=== PATIENT | male | born 1965 | race Hispanic/Latino ===

== ENCOUNTER 2018-11-20 11:45 | Inpatient (IN) | payer BC ==
[2018-11-20] MEDS ORDERED: PROPOFOL 20 ML ONE (12:01)
[2018-11-20 12:02] LABS: Actual Bicarbonate (HCO3a) 25.1 mEq/L (22-28); Analyzer IN Cardio ER; Base Excess (BEa) 0.8 mEq/L (-2.0 to +3.0); CO2 Tension 39.3 mmHg (35.0-45.0); Calcium, Ionized 1.12 mmol/L (1.12-1.30); Carboxyhemoglobin (COHb) 0.7 gm% (0.0-3.0); Hemoglobin (Hb) 18.2 g/dL (14.0-18.0); Potassium - ABG Lab 3.07 mmol/L (3.70-5.30); pH, Arterial 7.42 (7.35-7.45)
[2018-11-20 12:03] LABS: ALV-art Gradient 99.875 (0-20); Puncture Site RR
--- NOTE | 2018-11-20 12:07 | RAD ---
EXAM: CHEST ONE VIEW HISTORY: Trauma. COMPARISON: None FINDINGS: Endotracheal tube is noted in place with tip overlying the T3 vertebral body and above the level of t he pasquale. Radiopaque tubing overlies the right hemithorax. Cardiac silhouette and bronchovascular markings are accentuated by the shallow depth inspiration and portable technique of the exam. There i s mild elevation of the right hemidiaphragm. No pneumothorax or pleural effusion is identified on this exam. No obvious fracture is seen. Vascular calcifications are seen in the aortic arch. IMPRESSION: 1. Endotracheal tube is noted in place above the level of the pasquale. 2. No pneumothorax or pleural effusion is identified.
[2018-11-20 12:11] LABS: #Basophils 0.1 thou/uL (0.0-0.2); #Eosinphils 0.3 thou/uL (0.0-0.7); #Lymphocytes 2.7 thou/uL (1.20-3.40); #Neutrophils 4.6 thou/uL (1.40-6.50); %Basophils 1.1 % (0.0-1.0); %Lymphocytes 31.3 % (21.0-51.0); %Monocytes 11.4 % (0.0-10.0); %Neutrophils 53.2 % (42.0-75.0); Hemoglobin 18.5 g/dL (14.0-18.0); Mean Corpuscular HGB CONC 35.2 g/dL (32.0-36.0); Mean Corpuscular Hemoglobin 34.7 pg (27.0-31.0); Mean Corpuscular Volume 98.5 fL (78.0-98.0); Mean Platelet Volume 8.6 fL (7.4-10.4); Platelet Count 97 thou/uL (130-400); RBC Distribution Width 11.9 % (11.5-14.5); Red Blood Cell (RBC) Count 5.33 mill/uL (4.70-6.10); White Blood Cell (WBC) Count 8.6 thou/uL (4.8-10.8)
[2018-11-20 12:12] LABS: INR-International Normal Ratio 1.3; PTT 28.5 SEC (22.9-36.1); Prothrombin Time 16.1 SEC (12.0-14.7)
[2018-11-20] MEDS ORDERED: niCARdipine 20MG In NaCl 20 MG/200 ML BAG ONE (12:21)
[2018-11-20 12:23] LABS: Platelet Morphology Comment Appears Decreased; RBC Morphology Normal
[2018-11-20] MEDS ORDERED: Propofol 1,000 MG/100 ML VIAL IV ONE (12:23)
[2018-11-20 12:24] LABS: Acetaminophen Less than 6.0 mcg/mL (10.0-30.0); Alcohol Less than 10 mg/dL (Less than 10); Salicylate Less than 8.0 mg/dL (15.0-30.0)
[2018-11-20 12:25] LABS: ALT (SGPT) 40 U/L (8-55); AST (SGOT) 41 U/L (5-34); Albumin 3.6 g/dL (3.5-5.0); Alkaline Phosphatase 151 U/L (40-110); Anion Gap 10 mmol/L (10-20); BUN (Urea Nitrogen) 10 mg/dL (8.4-25.7); Bilirubin, Total 1.5 mg/dL (0.2-1.2); Calc. Creatinine Clearance 0 mL/min (70-130); Calcium 8.6 mg/dL (7.8-10.44); Carbon Dioxide 25 mmol/L (22-29); Chloride 105 mmol/L (98-107); Estimated GFR-MDRD Greater than 90; Globulin 4.4 g/dL (2.4-3.5); Glucose 244 mg/dL (70-105); Lipase 51 U/L (8-78); Sodium 137 mmol/L (136-145)
--- NOTE | 2018-11-20 12:29 | CT ---
CT BRAIN WITHOUT CONTRAST: DATE: . TIME: 11:56 AM. CLINICAL HISTORY: Altered mental status, tongue numbness. COMPARISON: None. FINDINGS: Hemorrhage: Acute hemorrhage does involve the brainstem, centered at the supriya and extending laterally to the right via the right cerebral peduncle, to the medial aspect of the right basal ganglia, traversing the posterior limb and genu of the right internal capsule. Hemorrhagic involvement of righ t thalamus, as well. Ventricular system: Hemorrhage does dissect into the fourth ventricle as well as within the left fora men of Luschka. No ventriculomegaly. Cerebral parenchyma: Hemorrhagic extension into right cerebral hemisphere, as above Midline shift: None. Mass: Mass effect is localized within the brainstem due to the above-described hemorrhage Calvarium: Normal. Visualized Paranasal sinuses: Scattered opacification and fluid, also involving nasal passageway, ludwig e of which relates to intubated state. IMPRESSION: Acute brainstem hemorrhage, with right lateral extension via the right cerebral peduncle to the right internal capsule and right thalamus. This is most consistent with an acute hypertensive hemorrhage. Telephone call placed to patient's physician Anatoly Reina at 1224 hours. CODE CR Transcribed Date/Time: 11/20/2018 12:56 PM
--- NOTE | 2018-11-20 12:49 | CT ---
CTA of the head with and without IV contrast and 3-D reformatted imaging. CTA of the neck with IV contrast and 3-D reformatted imaging 3 D Volume Rendering: DATE: 11/20/2018 11:56 AM HISTORY: Altered mental status, tongue numbness COMPARISON: None FINDINGS: Reference concurrently dictated head CT for details regarding acute intracranial hemorrhage. Right: CCA:No significant stenosis. Mild vascular calcification. ICA:No significant stenosis. Mild vascular calcification. MCA:No significant stenosis. POP:No significant stenosis. DEHYDROGENATION CONVERTER OPERATOR:No significant stenosis. LEFT: CCA:No significant stenosis. Mild vascular calcification. ICA:No significant stenosis. Mild vascular calcification. MCA:No significant stenosis. POP:No significant stenosis. DEHYDROGENATION CONVERTER OPERATOR:No significant stenosis. Vertebrobasilar System: Left Vertebral:No significant stenosis. Mild vascular calcification. Right Vertebral:No significant stenosis. Basilar:No significant stenosis. IMPRESSION: No hemodynamically significant stenosis, occlusion or aneurysmal dilation. Scattered mild vascular calcification.
[2018-11-20] MEDS ORDERED: Magnesium 2 GM/50 ML BAG (IN WATER) ONE (12:51)
[2018-11-20] MEDS ORDERED: Potassium Chloride 40 MEQ in Sodium Chloride 0.9% 500 ML IVPB SCH (13:00)
[2018-11-20 13:02] LABS: Bacteria/HPF None Seen HPF (None Seen); Bilirubin Negative (Negative); Blood, Urine Trace (Negative); Clarity Clear (Clear); Glucose, Urine (Dipstick) 100 mg/dL (Negative); Leukocyte Negative Leu/uL (Negative); Nitrite Negative (Negative); Protein, Urine (Dipstick) Negative (Neg-Trace); RBC/HPF 0-3 HPF (0-3); Squamous Epithelial 0-3 HPF (0-3); Urobilinogen Normal mg/dL (Less than 2); WBC/HPF None Seen HPF (0-3)
--- NOTE | 2018-11-20 13:02 | CT ---
EXAM: CT cervical spine PROVIDED CLINICAL HISTORY: Trauma. Patient called 911 secondary to tongue numbness. Upon EMS arrival, the patient was found unre sponsive in bathtub. TECHNIQUE: Contiguous axial CT images are obtained through the cervical spine from the skull base to the T2 leve l. Sagittal and coronal reformatted images are provided. COMPARISON: None FINDINGS: No evidence for fracture or traumatic subluxation. There is rotation of C1 on C2 attributable to matthew ent's head rotated to the right and is not thought to be related to rotary subluxation. No prevertebral soft tissue swelling is apparent. Endotracheal tube and nasogastric tubes are noted in place. The abdomen tracheal tube terminates at t he level of the T2 vertebral body. There is fluid seen within the nasopharynx and oropharynx likely attributable to recent placement of endotracheal tube and nasogastric tube. Visualized lung apices appear clear. Visualized thyroid gland demonstrates a grossly normal nonenhanced CT appearance. Tiny amount of fluid is seen in the left maxillary antrum. Visualized lung apices are clear. Gas is seen in an infraclavicular location likely related to gas wi thin venous structures secondary to placement of a peripheral intravenous catheter. IMPRESSION: No evidence for fracture or traumatic subluxation. Fluid in the nasopharynx and oropharynx likely related to intubation and nasogastric tube placement. Above findings were discussed with Dr. Reina on 11/20/2018 at 1258 hours.
[2018-11-20] MEDS ORDERED: ISOVUE-370 76%-LOCM 1 ML ONE (13:08)
[2018-11-20 13:12] LABS: Amphetamine Not Detected (NotDetected); Barbiturates Screen Not Detected (NotDetected); Benzodiazepine Screen Not Detected (NotDetected); Cocaine Metabolite Screen Not Detected (NotDetected); Medtox Control Line Valid? VALID (VALID); Medtox Reader # READER 4; Methadone Not Detected (NotDetected); Methamphetamine Not Detected (NotDetected); Opiate Screen Not Detected (NotDetected); Oxycodone Screen Not Detected (NotDetected); Phencyclidine (PCP) Not Detected (NotDetected); THC/Cannabinoid Screen Not Detected (NotDetected); Tricyclic Screen Not Detected (NotDetected)
[2018-11-20] MEDS ORDERED: Ondansetron PF 4 MG/2 ML Vial IVP PRN (13:27)
[2018-11-20] MEDS ORDERED: Docusate 100 MG CAP PO PRN (13:27)
[2018-11-20] MEDS ORDERED: Acetaminophen 325 MG TAB PO PRN (13:27)
[2018-11-20] MEDS ORDERED: Mag-Al 1200 mg/1200 mg/30 ML UDCUP PO PRN (13:27)
[2018-11-20] MEDS ORDERED: niCARdipine 25 MG in Sodium Chloride 0.9% 250 ML 240 ML IVPB PRN (13:27)
[2018-11-20] MEDS ORDERED: Fentanyl 100 MCG/2 ML VIAL ONE (14:05)
[2018-11-20] MEDS ORDERED: Lorazepam 2 MG/ML VIAL ONE (14:15)
--- NOTE | 2018-11-20 14:24 | HP ---
HISTORY OF PRESENT ILLNESS: Mr. Morin is a 53-year-old male, who was brought to the emergency department this afternoon for altered mental status. He called the EMS from home stating that he had numbness in his tongue. When EMS arrived, he was found unresponsive in his bathtub. There were no medications around. He was brought to the hospital. He was intubated and GCS of 4. Neurosurgery was consulted due to CT imaging of the brain showing brainstem hemorrhage. He is unresponsive. When I see him, he is ventilated and has been sedated. There is no obvious sign of trauma. He had an episode of bleeding from nares. His right pupil is dilated and fixed. His left pupil is constricted and is responsive. He has a very minimal corneal reflex. Positive doll's eye and no gag reflex. I did not get any motor response to painful stimuli. He is currently GCS of 3. There is no family around. There is no evidence of blood thinners. REVIEW OF SYSTEMS: Unable to obtain. MEDICAL HISTORY: Unable to obtain. MEDICATIONS: Unable to obtain. SOCIAL HISTORY: The patient lives alone. EMS found multiple empty beer cans around his living room, but no medication or illicit drugs were found. PHYSICAL EXAMINATION: VITAL SIGNS: Temperature 98.2, blood pressure was 135 systolic, heart rate 80, respirations 20, and O2 stats 100% on vent. CONSTITUTION: He is currently intubated and responsive. He is normocephalic and atraumatic. ENT: Right pupil is dilated and fixed. Left pupil is constricted, but responsive to light. Trachea is midline. He does have some noticeable blood in his nares. RESPIRATIONS: Normal. Chest rise symmetric, but on ventilator. NEURO: GCS 3. Currently, the patient has no response to painful stimuli. He has a very mild corneal reflex. He has positive doll's eyes. No gag reflex and right eye is fixed and dilated. Left eye is constricted, but reactive. IMAGING STUDIES: CT brain, acute brainstem hemorrhage with right lateral extension, right cerebral peduncle to the right internal capsule and right thalamus. ASSESSMENT AND PLAN: Mr. Morin is a 53-year-old male with an acute brainstem hemorrhage occurring earlier this morning. This is all likely hypertensive bleed. There are no evidence of blood thinners on board. However, there is no family to contact either. Our plan is to get him admitted up into the ICU. We will consult hospitalist for medical management to help with blood pressure medications. We will have an EVD kit at bedside. Neuro check regularly. Keep his blood pressure systolic under 140. This type of bleed has a poor prognosis, and there is no surgical intervention that can be done. We will get a repeat CT in 6 hours from the original. If there are any questions, please contact the Neurosurgery team. Job ID: [id number]
[2018-11-20] MEDS: Sodium Chloride 0.9% 1,000 ML IV SCH (14:40)
[2018-11-20] MEDS ORDERED: Propofol BOLUS 1,000 MG/100 ML VIAL IV PRN (15:02)
[2018-11-20] MEDS ORDERED: Lorazepam 2 MG/ML VIAL SLOW IVP PRN (15:02)
[2018-11-20] MEDS ORDERED: fentaNYL Citrate/PF 2,000 MCG in Sodium Chloride 0.9% 60 ML IV SCH (15:02)
[2018-11-20] MEDS ORDERED: Fentanyl BOLUS 250 ML IVPB PRN (15:02)
--- NOTE | 2018-11-20 15:42 | HP ---
HISTORY OF PRESENT ILLNESS: Mr. Morin is a 53-year-old man, who apparently called 911 complaining of numbness to his tongue. The patient was able to open his door while waiting for emergency room medical personnel. Upon arrival of the EMS, the patient was found in the bathtub now with initial [place] Coma Scale of E4, V2, M6. Within 2 to 3 minutes of arrival of the EMS, the patient became unresponsive and was literally lifted off the bathtub and transported via ground EMS to [facility] in [place], [place]. The patient arrived within 20 minutes of this presentation. GCS upon arrival was noted at E1, V1, M2. He was electively intubated to protect his airway and to facilitate a timely workup. PAST MEDICAL HISTORY: Unknown. PAST SURGICAL HISTORY: Unknown. SOCIAL HISTORY: Unknown. FAMILY HISTORY: Unknown. CURRENT MEDICATIONS: Unknown. ALLERGIES: UNKNOWN. REVIEW OF SYSTEMS: Could not be obtained as the patient is in deep coma in extremis. PHYSICAL EXAMINATION: GENERAL: This reveals a 53-year-old normally developed man, who is in deep coma and appeared in extremis. INITIAL VITAL SIGNS: Included blood pressure 224/154, pulse 80, respiratory rate 22, temperature 98.2 degrees Fahrenheit, oxygen saturation 100% on room air. HEENT: Right pupil 5 mm, left 2 mm, and both sluggish to light. Nasal patent, no discharge. Tympanic membrane visualized. No hemotympanum is present. NECK: Cervical spine is palpated free of any abnormalities. He does not have any markers of trauma about his head or neck or chest for that matter. CHEST: Chest wall is stable. No gross deformities or step-offs are present. HEART: Reveals regular rate and rhythm. No murmurs or gallops auscultated. LUNGS: Clear to auscultation bilaterally. Breathing regular and nonlabored. ABDOMEN: Soft, nontender, nondistended. Bowel sounds in all 4 quadrants appear normoactive. GENITOURINARY: Reveals bilateral descended testicles in a normal uncircumcised male genitalia. He has no blood in his urethral meatus. There is no ecchymosis or hematoma of the scrotum or perineum. EXTREMITIES: Reveal 2+ radial and pedal pulses bilaterally. No ankle edema is present. PERTINENT LABORATORY FINDINGS: Include a CBC with 8600 white blood cells, hemoglobin and hematocrit 18.5 and 52.5 respectively. Platelet count is 97,000. PTT and INR normal at 28.5 seconds and 1.3 respectively. Arterial blood gas; pH 7.42, pCO2 is 39.3, pO2 is 564, oxygen saturation 100%, base excess noted at 0.8. This was on mechanical ventilator support with FiO2 of 100%. Metabolic profile; sodium 137, potassium 3.0, chloride is 105, bicarb is 25, BUN 10, creatinine 0.81, glucose 244, total bilirubin is 1.5, AST and ALT 41, 40 respectively. Alkaline phosphatase is 151. Serum lipase is normal at 51. Plasma alcohol level is less than 10. IMAGING STUDIES: I have personally reviewed all radiographic studies including chest x-ray, which is unremarkable for any acute intrathoracic pathology. CT scan of the brain is remarkable for severe acute brainstem hemorrhage involving the right cerebral peduncle, internal capsule, and right thalamus. The hemorrhage appears to extend to the fourth ventricle. CT scan of the cervical spine reveals no fractures or dislocation. IMPRESSIONS: 1. Acute intracerebral hemorrhage involving the right brainstem. 2. Acute hypertensive emergency. 3. Acute respiratory failure. PLAN: 1. Control hypertension with intravenous antihypertensives. 2. Consult with Neurosurgery and Pulmonary Critical Care. 3. There is no clinical or radiological evidence of acute traumatic injuries. Therefore, Trauma Surgery will sign off and be available to re-evaluate the patient on demand. Meanwhile, we will maintain the patient on full mechanical ventilator support. TIME SPENT: Total critical care time is 50 minutes. Job ID: [id number]
--- NOTE | 2018-11-20 18:08 | CT ---
CT HEAD WITHOUT CONTRAST: 11/20/18 INDICATIONS: Follow-up intracranial hemorrhage. Comparison made to CT performed earlier today at 12:13 p.m. FINDINGS: Brain stem hemorrhage is again noted. The size of the hematoma at the level of the supriya has increased . It now measures 3.2 cm AP dimension. Similar location measurement on the prior study was 2.1 cm. Th e image again is seen extending into the cerebral peduncle into the thalamus. This extension into the thalamus has not significantly changed. Interventricular extension is noted. IMPRESSION: Increasing size of the brain stem hematoma when compared to exam earlier today. Relayed to patient's nurse. POS: OFF
--- NOTE | 2018-11-20 19:22 | CON ---
DATE OF CONSULTATION: 11/20/2018 REASON FOR CONSULTATION: Medical management. SHEET FINISHER: Dr. Kenny, Neurosurgery. PRIMARY ATTENDING: Dr. Reina, Trauma. HISTORY OF PRESENT ILLNESS: The patient is a 53-year-old man, who apparently called EMS after he noticed some numbness of his tongue and EMS on arrival found him in the bathtub with initial [place] coma scale of E4 V2 and M6. Subsequently, he was transported to the emergency room in [place], got intubated, and is admitted to the intensive care unit. PAST MEDICAL HISTORY: Unknown. PAST SURGICAL HISTORY: Unknown. SOCIAL HISTORY: Unknown. FAMILY HISTORY: Unknown. CURRENT MEDICATIONS: 1. Fentanyl p.r.n. 2. IV piggyback. 3. Nicardipine drip p.r.n. 4. Propofol. REVIEW OF SYSTEMS: Unobtainable secondary to coma. ALLERGIES: UNKNOWN. PHYSICAL EXAMINATION: GENERAL: The patient is not sedated at the time of my examination. VITAL SIGNS: His blood pressure is down to 94/56, pulse is 68, respiratory rate is 16, and O2 saturations 100. His Cardene drip is off. HEENT: The right pupil is 5 mm in size and the left one is 2 mm or less, very sluggish response to the light, minimal. LUNGS: Clear. HEART: S1 and S2 normal. He is already intubated. ABDOMEN: Soft, nondistended. Bowel sounds present, sluggish. EXTREMITIES: No clubbing, cyanosis, or edema. NEUROLOGICAL: The patient is not sedated at the time of my visit. He has some right upper extremity function. He tries to squeeze my hand and the rest of the lower and upper extremities are not showing any function at all. Babinski sign is difficult to assess since he has withdrawal. Both feet on applied testing. He is in deep coma. He is not arousable. LABORATORY DATA: White count of 8600, hemoglobin of 18.5, platelet count 97,000. INR 1.3. ABGs, pH 7.42, pCO2 39.3, PO2 564. He is on FiO2 of 100. Sodium of 137, potassium 3.0, chloride is 105, bicarb is 25, BUN 10, creatinine 0.81, glucose 244, total bilirubin 1.5, AST and ALT 41 and 40 respectively. Serum lipase 51. Plasma alcohol level is less than 10. DIAGNOSTIC DATA: Chest x-ray unremarkable. CT of the brain, severe acute brainstem hemorrhage involving the right cerebral peduncle internal capsule and right thalamus, hemorrhages extending to the fourth ventricle. IMPRESSION: 1. Acute intracerebral hemorrhage. 2. Acute hypertensive emergency. 3. Acute respiratory failure. 4. Hypokalemia. PLAN: The patient was seen by neurosurgeon and the surgical intervention was not offered. At this point, the plan is to do the CT of the brain in 6 hours because of his blood pressure down to the 90s without any nicardipine drip. We will watch his blood pressure closely without any significant hypertensive medications use. We will replace his potassium. He had 40 mEq of KCl, and we will repeat the dose again and check his potassium and magnesium in the morning. The prognosis is very poor, and we are trying to do everything to contact the family to find out more about this patient. Job ID: [id number]
[2018-11-20 20:06] LABS: #Lymphocytes 0.6 thou/uL (1.20-3.40); #Monocytes 1.1 thou/uL (0.11-0.59); #Neutrophils 11.7 thou/uL (1.40-6.50); %Basophils 0.3 % (0.0-1.0); %Eosinophils 0.2 % (0.0-10.0); %Lymphocytes 4.8 % (21.0-51.0); %Monocytes 8.1 % (0.0-10.0); %Neutrophils 86.6 % (42.0-75.0); Hemoglobin 17.4 g/dL (14.0-18.0); Mean Corpuscular HGB CONC 34.3 g/dL (32.0-36.0); Mean Corpuscular Hemoglobin 34.5 pg (27.0-31.0); Mean Platelet Volume 8.8 fL (7.4-10.4); Platelet Count 122 thou/uL (130-400); RBC Distribution Width 12.1 % (11.5-14.5); Red Blood Cell (RBC) Count 5.03 mill/uL (4.70-6.10); White Blood Cell (WBC) Count 13.5 thou/uL (4.8-10.8)
[2018-11-20] MEDS: Famotidine/PF 20 mg/2ml Vial SLOW IVP SCH (20:11)
[2018-11-20 20:16] LABS: Fibrinogen 233 mg/dL (253-463); INR-International Normal Ratio 1.3; PTT 28.6 SEC (22.9-36.1); Prothrombin Time 16.2 SEC (12.0-14.7)
[2018-11-20 20:17] LABS: D-Dimer Test 0.98 *mcg/mL (0.27-0.43); FSP-Qualitative Normal (Normal)
[2018-11-20 20:21] LABS: Platelet Count 119 thou/uL (130-400)
[2018-11-20 20:35] LABS: Potassium 4.8 mmol/L (3.5-5.1)
--- NOTE | 2018-11-20 21:45 | PRG ---
DATE OF SERVICE: 11/20/2018 I saw Mr. Morin in his ICU room this evening. He is a 53-year-old gentleman, who came in with brainstem hemorrhage this afternoon. Followup CT scan was ordered and his ventricular system above the hemorrhage has started to expand a bit. We asked the family if they are interested in EVD placement to treat his early hydrocephalus and prevent further neurological deterioration knowing that he will have permanent deficits from his brainstem hemorrhage. I met with the family myself including two parents, brother, sister, two adult children, ex-, multiple cousins, and other family members. I did discuss with them brainstem dysfunction related to the hemorrhage that is likely to be permanent. I discussed with them the likelihood of gastrostomy and tracheostomy. I did discuss with them the preservation of cognitive function in the conscious parts of the brain above the hemorrhage and the preservation of motor fibers control on the right side of the body through the left cerebral peduncle, which is not involved within the hemorrhage. After discussing likely and unlikely scenarios, the family decided not to proceed with external ventricular drain placement. They know this will result in, most likely, slowly increasing hydrocephalus over the coming days, decreased consciousness, decreased effort to breathe, and finally mortality. They tell me that their father would never want any discussion about gastrostomy or tracheostomy, would not want to live in the alf ever, and he would not want to burden his family with constant visits to a facility like that. They have interpreted his wishes for me. We are going to make him DNR. We are going to stop the antihypertensive drip and we will keep him on propofol sedation. I will allow our colleagues in Critical Care Medicine to speak with them about extubation tomorrow or in the coming days. We will keep him on IV fluid. Job ID: [id number]
--- NOTE | 2018-11-21 03:08 | CON ---
DATE OF CONSULTATION: 11/20/2018 HISTORY OF PRESENT ILLNESS: Zack Morin is a 53-year-old male. He has been intubated for a brainstem bleed. He had a CAT scan done at 1156 hours this morning and then another 1 this evening. I was consulted because of his presence in the ICU this evening. His brother was at the bedside when I saw him. PAST MEDICAL HISTORY: Unremarkable. His brother says he has been healthy. FAMILY HISTORY: Negative for lung disease in early age. REVIEW OF SYSTEMS: Not obtainable. PHYSICAL EXAMINATION: GENERAL: He is spontaneously moving his right side. VITAL SIGNS: Heart rate is in the 70s, blood pressure is around 100 systolic. Respiratory rate is per mechanical ventilation. HEENT: Asymmetric pupils with his right pupil being larger. LUNGS: Remarkable for coarse equal breath sounds. HEART: Regular rhythm. ABDOMEN: Soft and nontender. EXTREMITIES: Without clubbing, cyanosis, or edema. LABORATORY DATA: Labs have been reviewed. White count 8.6, hemoglobin 18.5, platelets 97,000. Electrolytes are unremarkable. Bilirubin is 1.5, AST is 41, ALT is 40 and alkaline phosphatase 151. IMPRESSION: Brainstem bleed, likely to be a terminal event. I encouraged the brother to talk to the rest of the family and consider making him a do not resuscitate patient. I assured him that we would do our best to take care of him, but if he reaches a point where he becomes hemodynamically unstable, it is unlikely he will survive with or without CPR. Critical care time 30 minutes. Blood gases were reviewed, pH 7.42 , CO2 39, PO2 of 164. Chest x-ray showed proper placement of the endotracheal tube. Critical care time is 35 minutes. Job ID: [id number] [facility]
[2018-11-21 04:38] LABS: #Basophils 0.1 thou/uL (0.0-0.2); #Lymphocytes 1.2 thou/uL (1.20-3.40); #Monocytes 1.2 thou/uL (0.11-0.59); #Neutrophils 8.6 thou/uL (1.40-6.50); %Basophils 0.5 % (0.0-1.0); %Eosinophils 0.2 % (0.0-10.0); %Monocytes 10.9 % (0.0-10.0); %Neutrophils 77.5 % (42.0-75.0); Hemoglobin 16.7 g/dL (14.0-18.0); Mean Corpuscular HGB CONC 34.4 g/dL (32.0-36.0); Mean Corpuscular Hemoglobin 34.4 pg (27.0-31.0); Mean Platelet Volume 8.4 fL (7.4-10.4); Platelet Count 100 thou/uL (130-400); RBC Distribution Width 12.2 % (11.5-14.5); Red Blood Cell (RBC) Count 4.84 mill/uL (4.70-6.10); White Blood Cell (WBC) Count 11.1 thou/uL (4.8-10.8)
[2018-11-21 04:55] LABS: Anion Gap 10 mmol/L (10-20); BUN (Urea Nitrogen) 18 mg/dL (8.4-25.7); Calc. Creatinine Clearance 90 mL/min (70-130); Calcium 8.5 mg/dL (7.8-10.44); Carbon Dioxide 28 mmol/L (22-29); Chloride 109 mmol/L (98-107); Estimated GFR-MDRD 70; Glucose 267 mg/dL (70-105); Potassium 3.4 mmol/L (3.5-5.1); Sodium 144 mmol/L (136-145)
[2018-11-21] MEDS: Sodium Chloride 0.9% 1,000 ML IV SCH ×2 (06:50→16:24)
[2018-11-21 07:04] LABS: Actual Bicarbonate (HCO3a) 28.7 mEq/L (22-28); Base Excess (BEa) 6.4 mEq/L (-2.0 to +3.0); CO2 Tension 34.2 mmHg (35.0-45.0); Calcium, Ionized 1.15 mmol/L (1.12-1.30); Carboxyhemoglobin (COHb) 1.5 gm% (0.0-3.0); Hemoglobin (Hb) 16.6 g/dL (14.0-18.0); O2 Tension (PaO2) 85.5 mmHg (80.0-100.0); Potassium - ABG Lab 3.36 mmol/L (3.70-5.30); pH, Arterial 7.54 (7.35-7.45)
[2018-11-21 07:05] LABS: Puncture Site RR
[2018-11-21] MEDS: Labetalol HCl 100 MG/20 ML VIAL SLOW IVP PRN ×3 (07:15→20:11)
[2018-11-21] MEDS ORDERED: Dextrose 50% Abboject 50 ML SYRINGE SLOW IVP PRN (07:17)
[2018-11-21] MEDS ORDERED: Dextrose 5% in Water 1,000 ML IV PRN (07:17)
[2018-11-21] MEDS: Famotidine/PF 20 mg/2ml Vial SLOW IVP SCH ×2 (08:02→20:11)
--- NOTE | 2018-11-21 08:55 | PRG ---
DATE OF SERVICE: 11/21/2018 I saw Mr. Morin in the ICU this morning. No events have been reported overnight. The family confirmed their wishes not to proceed with ventriculostomy. There is a low-grade fever up to 102.2 degrees Fahrenheit. Blood pressures have been in the 150s. On examination, Mr. Morin looks slightly better to me. He still has a large nonreactive right pupil and a small nonreactive left pupil. He reacts to stimuli. He follows commands on the right side. There is no motion whatsoever on the left. I will follow up with the family today. The cerebral aqueduct and the top of the fourth ventricle are narrowed significantly by the hemorrhage. The ventricles above had already enlarged on his followup scan yesterday. His neurological examination is slightly better. Today, his ventricular system is somewhat stable to the scan done late yesterday afternoon. I will follow up with the family later this morning and given them an update on his neurological exam. It may be that the clot has stabilized, that the ventricular system is larger, but it is not going to enlarge anymore and that he is going to be able to survive this if given a trach and PEG without any neurosurgical intervention. My goal today is to prep them on that possibility so that they can make an informed decision in a few days from now when it becomes evident that his clinical course will either stabilize or deteriorate. Job ID: [id number]
[2018-11-21] MEDS ORDERED: FLU VACC QS2019-20(6MOS UP)/PF 60 MCG/0.5 ML SYRINGE IM ONE (09:00)
--- NOTE | 2018-11-21 11:42 | CT ---
PRELIMINARY REPORT/[facility]/EMERGENCY AFTER HOURS PROCEDURE: PROCEDURE INFORMATION: Exam: CT Head Without Contrast Exam date and time: 11/21/2018 4:13 AM Clinical history: 53 years old, male; Condition or disease; Patient HX: F/u ich TECHNIQUE: Imaging protocol: Computed tomography of the head without contrast. COMPARISON: CT Brain WO Con 11/20/2018 5:46 PM FINDINGS: Brain: Stable hemorrhage involving the brainstem and inferior right basal ganglia region. Stable mild multifocal subarachnoid hemorrhage. Midline shift: No midline shift. Ventricles: Stable mild ventriculomegaly. Bones/joints: Unremarkable. No acute fracture. Sinuses: Multifocal sinus fluid levels may be related to trauma or sinusitis. Mastoid air cells: Visualized mastoid air cells are well aerated. Soft tissues: Unremarkable. Other findings: No bradycardia noted. IMPRESSION: 1. Stable hemorrhage involving the brainstem and inferior right basal ganglia region. Stable mild mul tifocal subarachnoid hemorrhage. 2. Stable mild ventriculomegaly. 3. Multifocal sinus fluid levels may be related to trauma or sinusitis. Thank you for allowing us to participate in the care of your patient. Dictated and Authenticated by: Renan Colorado MD 11/21/2018 4:32 AM Central Time ([place] & [place]) FINAL REPORT EMERGENCY AFTER HOURS NONCONTRAST CT HEAD: Date: 11/21/18 HISTORY: Follow-up intracranial hemorrhage. COMPARISON: 11/20/18. IMPRESSION: 1. Large hemorrhage involving the brainstem with right lateral extension into the right cerebral ped uncle and subsequently into the right basal ganglia, overall similar to the prior exam. In addition, there is suggestion of minimal subarachnoid hemorrhage present, similar to the prior study. 2. Ventricular size is stable when compared to the prior exam. CT of the head is overall stable comp ared to recent study on 11/20/18. 3. Endotracheal tube noted in place with mucosal thickening and fluid levels in visualized paranasal sinuses. Findings are in agreement with the preliminary report by Tracey. POS: OFF
--- NOTE | 2018-11-21 12:59 | PRG ---
DATE OF SERVICE: 11/21/2018 SUBJECTIVE: The patient is still in the ICU, A1. He is intubated. He is not sedated. He is not waking up for us. OBJECTIVE: VITAL SIGNS: Blood pressure is 141/76, temperature is 99.9, pulse is 64, respiratory rate is 16, O2 saturation is 100. He is on FiO2 of 30% on the ventilator with PEEP of 5. HEENT: His pupils are the same as they were yesterday, not much change with dilated right pupil and very small left pupil with very sluggish response to light, almost minimal. He is orally intubated. NG tube is in place. LUNGS: Clear. HEART: S1 and S2 are normal. ABDOMEN: Soft and nondistended. Bowel sound, sluggish. EXTREMITIES: No clubbing, cyanosis, or edema. NEUROLOGIC: He is off sedation. He has some function in his right upper extremity, but that is probably all what we see so far. He is in deep coma. He does not wake up. He does not respond. LABORATORY DATA: Labs showed white count of 11.1, hemoglobin 16.7, hematocrit 48.5, platelet count is 100. ABGs; pH of 7.54, pCO2 of 34.2, pO2 of 85.5, and base excess 6.4. Sodium of 144, potassium 3.4, chloride 109, CO2 of 28, BUN 18, creatinine 1.11, glucose is 267, calcium 8.5. Lactic acid yesterday was 4.0. CT of the brain without contrast done yesterday at 1800 hours showed increasing size of the brainstem hepatoma when compared to the examination done prior, and the CT of the brain done this morning showed stable hemorrhage involving the brainstem and inferior right basal ganglia region, stable mild multifocal subarachnoid hemorrhage, stable mild ventriculomegaly, and multifocal sinus fluid levels which may be related to trauma or sinusitis. IMPRESSION: 1. Acute brainstem hemorrhage. 2. Acute hypertensive emergency. 3. Acute respiratory failure. 4. Hypokalemia. PLAN: Plan is to replace him again with 20 mEq of KCl IV piggyback. His second CT showed some stabilization of the bleeding. Neurosurgeon is planning to talk to the family regarding the status and chances for the patient to survive of this event. If he survives, he will need tracheostomy and PEG. We will also continue close monitoring. His blood pressure systolic is running 140s to 150s, and he is off sedation completely. Job ID: [id number]
[2018-11-21] MEDS: HumaLOG 300 UNITS/3 ML VIAL SC PRN ×2 (13:51→20:19)
--- NOTE | 2018-11-21 17:17 | PRG ---
DATE OF SERVICE: 11/21/2018 SUBJECTIVE: He was clinically unchanged early this morning. He is spontaneously moving his right side, extended both legs to a sternal rub. He has been febrile. He has blown pupil on the right, small, nonreactive left pupil. I could not get him follow commands. OBJECTIVE: LUNGS: Remarkable for coarse equal breath sounds. HEART: Regular rhythm. S1, S2 are normal. ABDOMEN: Soft and nontender. EXTREMITIES: Without clubbing, cyanosis, or edema. LABORATORY DATA: White count 11.1, hemoglobin 16.7, platelets 100,000. Sodium 144, potassium 3.4, chloride 109, bicarb 20, BUN 18, creatinine 1.11. PH 7.54, pCO2 of 34, pO2 of 85. IMPRESSION: Respiratory failure after brain stem bleed. PLAN: Per Neurosurgery, it appears that he may survive on trach and PEG at an early date later this week could be reasonable. Critical care time is 35 minutes. Job ID: [id number] MTDD
[2018-11-21] MEDS: Acetaminophen 650 MG/20.3 ML UDCUP PO PRN (20:11)
[2018-11-22] MEDS: hydrALAZINE 20 MG/ML VIAL SLOW IVP PRN ×5 (01:04→23:34)
[2018-11-22] MEDS: Labetalol HCl 100 MG/20 ML VIAL SLOW IVP PRN ×2 (05:17→20:16)
[2018-11-22] MEDS: Sodium Chloride 0.9% 1,000 ML IV SCH ×2 (05:18→18:20)
[2018-11-22] MEDS: Acetaminophen 650 MG/20.3 ML UDCUP PO PRN (05:18)
[2018-11-22] MEDS: HumaLOG 300 UNITS/3 ML VIAL SC PRN ×3 (05:27→18:07)
[2018-11-22 06:52] LABS: Actual Bicarbonate (HCO3a) 24.7 mEq/L (22-28); Base Excess (BEa) 1.7 mEq/L (-2.0 to +3.0); CO2 Tension 34.7 mmHg (35.0-45.0); Calcium, Ionized 1.15 mmol/L (1.12-1.30); Hemoglobin (Hb) 16.5 g/dL (14.0-18.0); O2 Tension (PaO2) 70.2 mmHg (80.0-100.0); Potassium - ABG Lab 3.37 mmol/L (3.70-5.30); pH, Arterial 7.47 (7.35-7.45)
[2018-11-22 06:54] LABS: Puncture Site RRA
[2018-11-22 06:55] LABS: ALV-art Gradient 100.325 (0-20)
--- NOTE | 2018-11-22 07:54 | RAD ---
EXAM: CHEST ONE VIEW HISTORY: On ventilator. Follow-up evaluation. COMPARISON: 11/20/2018. FINDINGS: Endotracheal tube remains stable in position with tip overlying the T3 vertebral body and well above the level of the pasquale. There has been interval placement of a nasogastric tube which courses into the left upper quadrant. The cardiac silhouette is magnified by projection. There is mild elevation o f the right hemidiaphragm with mild volume loss at the right lung base. Minimal linear and patchy densities are seen at the left lung base. The central vascular structures are mildly prominent simila r to prior study. No consolidation is seen. No other interval change. IMPRESSION: 1. Interval placement of nasogastric tube with endotracheal tube stable in position. 2. Interval development of interstitial minimal patchy densities left lung base probably related to a telectasis. Developing pneumonitis cannot be entirely excluded.
[2018-11-22 08:40] LABS: #Lymphocytes 1.1 thou/uL (1.20-3.40); #Monocytes 1.6 thou/uL (0.11-0.59); #Neutrophils 9.2 thou/uL (1.40-6.50); %Basophils 0.2 % (0.0-1.0); %Eosinophils 0.2 % (0.0-10.0); %Lymphocytes 9.6 % (21.0-51.0); %Monocytes 13.2 % (0.0-10.0); %Neutrophils 76.9 % (42.0-75.0); Hemoglobin 16.2 g/dL (14.0-18.0); Mean Corpuscular HGB CONC 33.2 g/dL (32.0-36.0); Mean Corpuscular Hemoglobin 34.2 pg (27.0-31.0); Mean Platelet Volume 8.8 fL (7.4-10.4); Platelet Count 94 thou/uL (130-400); RBC Distribution Width 12.3 % (11.5-14.5); Red Blood Cell (RBC) Count 4.74 mill/uL (4.70-6.10); White Blood Cell (WBC) Count 11.9 thou/uL (4.8-10.8)
[2018-11-22 08:56] LABS: Anion Gap 12 mmol/L (10-20); BUN (Urea Nitrogen) 20 mg/dL (8.4-25.7); Calc. Creatinine Clearance 108 mL/min (70-130); Calcium 8.1 mg/dL (7.8-10.44); Carbon Dioxide 24 mmol/L (22-29); Chloride 114 mmol/L (98-107); Estimated GFR-MDRD 85; Glucose 288 mg/dL (70-105); Potassium 3.5 mmol/L (3.5-5.1); Sodium 146 mmol/L (136-145)
--- NOTE | 2018-11-22 08:59 | PRG ---
DATE OF SERVICE: 11/22/2018 I saw Mr. Morin in the ICU this morning. He is starting his third hospital day with us. No events reported. His T-max is 101.9 degrees Fahrenheit. On examination, Mr. Morin still has a large nonreactive pupil on his right side. He has a small pontine pupil on the left side. He has disturbance of eye movements. He follows commands on the right side of his body and the left is plegic. White blood cell count was 11.1 yesterday. I reviewed with the patient's family yesterday. He is not developing progressive hydrocephalus altering his mental status. This puts him into a chronic state with a neurologic function as it is currently. They will have to decide in the coming days whether they would like to proceed to trach and PEG and senior living placement. It is not an emergent decision for today, but it will be coming as time passes. We will continue to support him with blood pressure control, daily labs, vigilance for DVT and pneumonia, and arrangement for placement if they desire. Job ID: [id number]
[2018-11-22] MEDS: Famotidine/PF 20 mg/2ml Vial SLOW IVP SCH ×2 (09:21→20:16)
--- NOTE | 2018-11-22 11:50 | PRG ---
DATE OF SERVICE: 11/22/2018 SUBJECTIVE: The patient is seen and examined at bedside with two family members present in the room. There was nothing unexpected happening overnight. Apparently, Dr. Kenny visited the patient this morning and there was so some response to his commands. OBJECTIVE: VITAL SIGNS: Blood pressure is 150/78, pulse is 67, and respiratory rate is 21. He is on a ventilator. GENERAL: He is not sedated. HEENT: His right pupil is still big and the left one is still very small and they do not respond to light. LUNGS: Clear. HEART: S1 and S2 normal. No S3. No S4. ABDOMEN: Soft and nondistended. Bowel sounds sluggish. EXTREMITIES: No clubbing, cyanosis, or edema. NEUROLOGIC: The patient does not respond to me. He had some small function in the right upper extremity yesterday, but I cannot elicit anything today on either side. He is nonresponsive. LABORATORY DATA: White count of 11.9, hemoglobin of 16.2, hematocrit of 44.8, and platelet count of 94,000. ABGs showed a pH of 7.47, pCO2 of 34.7, pO2 of 70.2, and base excess 1.7. Sodium of 146, potassium 3.5, chloride 114, CO2 of 24, BUN 20, creatinine 0.93, glucose is ranging from 215 to 288, and calcium is 8.1. Chest x-ray was done this morning, which showed no new changes except for the fact that an NG tube was placed. IMPRESSION: 1. Acute brainstem hemorrhage. 2. Acute hypertensive emergency. 3. Acute respiratory failure. 4. Hypokalemia. 5. Hypernatremia and hyperchloremia. PLAN: We will discuss the case regarding his hypernatremia and hyperchloremia and we will make corrections to his IV fluids if appropriate according to Neurosurgery and janitorial supervisor. The family does not want to have PEG and trach placed and they will meet with another doctors to make decision whether the treatment will be withdrawn or continued for now. For now, he will stay in the intensive care unit, will be intubated and ventilated and managed. Job ID: [id number]
[2018-11-22 13:11] LABS: Hemoglobin A1c 6.6 % (4.0-6.0)
--- NOTE | 2018-11-22 14:06 | PRG ---
DATE OF SERVICE: 11/22/2018 SERVICE: Pulmonary Medicine. INTERVAL HISTORY: The patient is doing outstanding from respiratory standpoint. He denies any current chest discomfort, nausea, or vomiting. He has had quite heavy secretions, were bringing up copious amounts of yellow and brown material. Otherwise, there has been no interval change to his condition. He is able to follow some simple commands. He is breathing quite comfortably as well. PHYSICAL EXAMINATION: VITAL SIGNS: Afebrile, pulse 69, blood pressure 164/87, respirations 21, saturation 99%, currently on 27% FiO2 and a PEEP of 5. GENERAL: The patient is intubated. He is requiring a little bit of sedation to maintain comfort, but following commands comfortably. HEENT: Normocephalic and atraumatic. Sclerae are white. Conjunctivae are pink. Oral mucosa is moist without lesions. LUNGS: Decent air entry. Minimal rhonchi. No prolonged expiratory phase or wheezing is appreciated. HEART: Normal rate. Regular. ABDOMEN: Soft, nontender, and nondistended. Bowel sounds are positive. MUSCULOSKELETAL: No cyanosis or clubbing. There is no pitting in the bilateral lower extremities. LABORATORY DATA: WBC 11.9, hemoglobin 16.2, platelets 94,000 and gently downtrending. INR 1.3. A pH 7.47, pCO2 of 35, pO2 of 70, corresponding to a 95 % saturation. Basic metabolic profile is significant for minimal hypernatremia to 146, and potassium of 3.5. Urinalysis and urine drug screen are both unremarkable. Chest x-ray demonstrates NG tube coursing below the level of the diaphragm and out of the field of view. Interstitial markings are present bilaterally, worse in the left lung base. ASSESSMENT 1. Intracranial hemorrhage. 2. Acute hypoxic respiratory failure. 3. Community-acquired pneumonia secondary to overt aspiration. DISCUSSION AND PLAN The patient has mild hypernatremia. I am inclined to leave that alone as this is a relatively new event. Since things typically get worse before they get better with these types of bleeds, I believe I am going to leave him on mechanical ventilation for an additional 24 hours. We will continue supportive care including antibiotics directed at presumed aspiration-related event. Palliative Care conversations are being had as apparently the family is adamant that the patient would not want advanced care, where he to be permanently debilitated. As such, we may be transitioning over to comfort care only. As such, hold off on initiating feeds. Critical Care will follow while he remains in the unit. Small adjustments have been made to the ventilator. CRITICAL CARE TIME: 30 minutes. Job ID: [id number] MTDD
--- NOTE | 2018-11-22 15:19 | PDOC.PALCO ---
Palliative Care Consult - Consult Details Requesting Physician: Dr Dickey Reason for Consult: assistance with communication prognosis/disease, family support Family Members Present: sister and patient mother - Pertinent HPI 53 year old male who called 911 with complaints of numbness of the tongue, upon arrival of EMS patient was unresponsive and found in the bathtub, he was intubated and transported to [facility] emergency room. Severely hypertensive and CT revealed acute brainstem hemorrhage involving right cerebral pedunicle, internal capsule and right thalamus extending to fourth ventricle. Admitted to ICU with intracerebral hemorrhage acute hypertensive emergency with mechanical ventilation - Pertinent PMH Hypertension - Social History Smoking Status: Unknown if ever smoked Alcohol Use: other (unknown amount, however beer cans were found in home) Living Situation: independent - Medications MAR Reviewed: Yes - Allergies Allergies/Adverse Reactions: Allergies Allergy/AdvReac Type Severity Reaction Status Date / Time No Known Drug Allergies Allergy Unverified 11/20/18 12:49 - Subjective Mechanical ventilation ROS: unable to perform 10 point review of systems as patient not responsive and on mechanical ventilation - Objective Vital Signs: Vital Signs - Most Recent Temp Pulse Resp BP Pulse Ox 100.9 F H 74 24 H 164/87 H 95 11/22/18 05:00 11/22/18 14:53 11/22/18 14:00 11/22/18 11:28 11/22/18 08:00 Palliative Performance Scale: 20 - Physical Exam Constitutional: mild distress Deviation from normal: non reactive, unequal Deviation from normal: mechanical ventilation, slight adventicious lung Cardiovascular: RRR Gastrointestinal: soft, non-tender, positive bowel sounds Deviation from normal: no purposeful movement at time of assessment Deviation from normal: non responsive Skin: normal turgor, cap refill <2 seconds - Problem List (1) Palliative care encounter Code(s): Z51.5 - ENCOUNTER FOR PALLIATIVE CARE Current Visit: Yes Status: Acute (2) Hemorrhage of brainstem Code(s): I61.3 - NONTRAUMATIC INTRACEREBRAL HEMORRHAGE IN BRAIN STEM Current Visit: Yes Status: Acute Qualifiers: Intracerebral hemorrhage etiology: nontraumatic (3) Respiratory failure requiring intubation Code(s): J96.90 - RESPIRATORY FAILURE, UNSP, UNSP W HYPOXIA OR HYPERCAPNIA Current Visit: Yes Status: Acute - Plan/Recommendations Plan: Ari Dee RNfire protection designer initiated contact with family. Mother, sister and family friend at bedside when I arrived. Discussed current status of patient, they also relayed that it was mentioned that patient will most likely require a PEG and Trach. They shared that patient would not want those measures. Patient has two children who are to arrive tomorrow 11/23/18 *Ari Dee RN to confirm time of family meeting and relay to physicians and Palliative care time of meeting *Further discuss goals of care for patient in relation to PEG and Tach and known wishes of patient *Continue supportive care of family [60] minutes spent on this encounter with >50% of the time in counseling and coordination of care. Thank you for this very appropriate consult.
[2018-11-22] MEDS: Propofol 1,000 MG/100 ML VIAL IV PRN (18:10)
[2018-11-23] MEDS: HumaLOG 300 UNITS/3 ML VIAL SC PRN ×4 (00:52→18:26)
[2018-11-23] MEDS: Sodium Chloride 0.9% 1,000 ML IV SCH ×3 (02:35→18:29)
[2018-11-23] MEDS: Propofol 1,000 MG/100 ML VIAL IV PRN ×2 (02:36→10:40)
[2018-11-23 04:55] LABS: Anion Gap 9 mmol/L (10-20); BUN (Urea Nitrogen) 20 mg/dL (8.4-25.7); Calc. Creatinine Clearance 104 mL/min (70-130); Calcium 8.1 mg/dL (7.8-10.44); Carbon Dioxide 23 mmol/L (22-29); Chloride 119 mmol/L (98-107); Estimated GFR-MDRD 81; Glucose 220 mg/dL (70-105); Magnesium 2.2 mg/dL (1.6-2.6); Phosphorus 2.4 mg/dL (2.3-4.7); Potassium 4.2 mmol/L (3.5-5.1); Sodium 147 mmol/L (136-145)
[2018-11-23] MEDS: Labetalol HCl 100 MG/20 ML VIAL SLOW IVP PRN (05:04)
[2018-11-23] MEDS: Famotidine/PF 20 mg/2ml Vial SLOW IVP SCH ×2 (08:29→20:23)
[2018-11-23] MEDS: hydrALAZINE 20 MG/ML VIAL SLOW IVP PRN ×3 (08:29→20:45)
[2018-11-23] MEDS: Folic Acid 1 MG TAB PO SCH (08:31)
[2018-11-23] MEDS: Acetaminophen 650 MG/20.3 ML UDCUP PO PRN ×2 (08:31→20:26)
[2018-11-23] MEDS: Insulin Glargine 10 UNITS in Pre-Filled Syringe 1 EACH SC SCH (08:31)
[2018-11-23] MEDS: Cyanocobalamin (Vitamin B-12) 1,000 MCG TAB PO SCH (08:38)
--- NOTE | 2018-11-23 09:51 | PRG ---
DATE OF SERVICE: 11/23/2018 Mr. Morin is starting his fourth hospital day from spontaneous intracerebral hemorrhage in the brainstem and thalamus. No events were reported in the last 24 hours. I am seeing him this morning in the ICU. T-max over the last 24 hours is 100.4 degrees Fahrenheit. Other vital signs are stable. The neurological examination is unchanged. There is a large unreactive pupil on the right. There is a small pontine pupil on the left that is marginally reactive. There are some following commands on the right side of the body. There is some plegia on the left side of the body. There is a weak cough with suctioning. Mr. Morin is not developing significant hydrocephalus from his hemorrhage. There must be some circulation of the cerebrospinal fluid through the aqueduct. Therefore, imminent neurological decline is unlikely. He is likely to remain in this state for some time. In order to give him a chance to recover , a gastrostomy and tracheostomy will need to be placed. Of the two, I think the gastrostomy will have longer use and perhaps be permanent, I am not sure about the tracheostomy. At best, there would be a significant neurological impairment compared to his premorbid status, but I believe the hemorrhage is now survivable with these interventions. I will leave it to the family to decide how to proceed. Job ID: [id number] [facility]ITALVanessa
--- NOTE | 2018-11-23 12:26 | PRG ---
DATE OF SERVICE: 11/23/2018 SUBJECTIVE: The patient is seen and examined at the bedside. There is not much change since yesterday. Occasionally, he has some response from the right upper extremity, but that is basically all. He is on light sedation with 10 of propofol at the time of my visit. OBJECTIVE: VITAL SIGNS: Blood pressure is 141/67, pulse is 69, respiratory rate is 18, O2 saturation is 98%. HEENT: His right pupil is still dilated, but is slightly smaller than yesterday. It is not responding to light. The left pupil is small and fixed. LUNGS: Breath sounds somewhat diminished at both bases. No wheezing. No rales. HEART: S1, S2 normal. He is orally intubated. ABDOMEN: Soft, nondistended. Bowel sounds sluggish. EXTREMITIES: No clubbing, cyanosis, or edema. NEUROLOGIC: Postponed since he is under sedation. LABORATORY DATA: Sodium of 147, potassium 4.2, chloride 119, CO2 of 23, BUN 20, creatinine 0.97, glycemia is ranging from 183 to 234. The rest of chemistry is within normal limits. IMPRESSION: 1. Acute brainstem hemorrhage. 2. Acute hypertensive emergency. 3. Acute respiratory failure. 4. Hypokalemia, corrected. 5. Hypernatremia and hyperchloremia. PLAN: As per discussion with Dr. Whelan, we will keep the patient, with hypernatremia and hyperchloremia, in this setting to decrease the risk of swelling of the brain. Also, neurosurgical evaluation looks somewhat better. There is a chance that the patient can survive this with tracheostomy and PEG tube placement since there is some transport of CSF in the central nervous system and canal system because the patient is not developing hydrocephalus from [employer] G[employer]ER bleeding. This will be communicated to the family and we will proceed according to their wishes. For now, his hyperglycemia will be addressed with change in the type of sliding scale he is going to receive and Accu-Cheks will be continued every 6 hours. Job ID: [id number]
[2018-11-24] MEDS: Acetaminophen 650 MG/20.3 ML UDCUP PO PRN ×3 (02:46→18:29)
[2018-11-24] MEDS: hydrALAZINE 20 MG/ML VIAL SLOW IVP PRN (02:47)
[2018-11-24] MEDS: Propofol 1,000 MG/100 ML VIAL IV PRN ×3 (02:50→19:50)
[2018-11-24] MEDS: Labetalol HCl 100 MG/20 ML VIAL SLOW IVP PRN ×3 (04:24→19:46)
[2018-11-24 05:36] LABS: Phosphorus 2.6 mg/dL (2.3-4.7)
[2018-11-24 05:40] LABS: Anion Gap 9 mmol/L (10-20); BUN (Urea Nitrogen) 21 mg/dL (8.4-25.7); Calc. Creatinine Clearance 111 mL/min (70-130); Carbon Dioxide 22 mmol/L (22-29); Chloride 122 mmol/L (98-107); Estimated GFR-MDRD 87; Glucose 232 mg/dL (70-105); Magnesium 2.2 mg/dL (1.6-2.6); Potassium 3.3 mmol/L (3.5-5.1); Sodium 150 mmol/L (136-145)
[2018-11-24] MEDS: HumaLOG 300 UNITS/3 ML VIAL SC PRN ×3 (06:41→18:29)
[2018-11-24] MEDS ORDERED: Potassium Chloride 10 MEQ in Premix Bag 1 BAG IVPB SCH (07:45)
[2018-11-24] MEDS: Folic Acid 1 MG TAB PO SCH (07:50)
[2018-11-24] MEDS: Famotidine/PF 20 mg/2ml Vial SLOW IVP SCH ×2 (07:50→19:57)
[2018-11-24] MEDS: Cyanocobalamin (Vitamin B-12) 1,000 MCG TAB PO SCH (07:50)
[2018-11-24] MEDS: Sodium Chloride 0.9% 1,000 ML IV SCH ×2 (08:04→13:38)
--- NOTE | 2018-11-24 08:38 | PRG ---
DATE OF SERVICE: 11/24/2018 I saw Mr. Morin in his ICU room this morning. Propofol is running at 10 mL an hour. No events have been reported. There was discussion about tracheostomy and PEG among family members. Overnight, the vitals have been stable. On neurological examination, Mr. Morin take some time to wake up. Even with the propofol running, he begins to follow commands if stimulating enough. He does better with the propofol off. There are no family members to whom I can speak currently about the neurological condition. However, nothing has changed from our latest update to the family. I no longer believe the hydrocephalus will be life-threatening. There is a fluid getting through the aqueduct of [place] and no significant neurological deterioration. However, Mr. Morin will have severe deficits in his motor and sensory systems, his coordination system, and his cranial nerves. Cognitive function is likely to be preserved. The right side of the body seems to move well, but the left does not. I expect all of these will be long-term problems. I expect Mr. Morin require gastrostomy and tracheostomy, if we are going to give him a chance to survive. Of the two, I think it is more likely that he keeps the gastrostomy in long-term, whereas the tracheostomy might be able to be weaned over time. There is nothing in this report that is different from what I discussed with the family earlier this week. Job ID: [id number]
[2018-11-24] MEDS: Insulin Glargine 20 UNITS in Pre-Filled Syringe 1 EACH SC SCH (09:51)
[2018-11-24] MEDS: Insulin Glargine 10 UNITS in Pre-Filled Syringe 1 EACH SC SCH (10:05)
--- NOTE | 2018-11-24 10:36 | PRG ---
DATE OF SERVICE: 11/23/2018 SERVICE: Pulmonary Medicine. INTERVAL HISTORY: Neurologically, the patient has remained roughly stable. He can follow some simple commands on the right side, but otherwise, the left side is flaccid. He cannot provide any additional elements of the history however. There has been no interval change to his condition. PHYSICAL EXAMINATION: VITAL SIGNS: T-max 102.3, pulse 64, blood pressure 141/74, respirations 20, saturation 99%, currently on 27% FiO2 and PEEP of 5. GENERAL: The patient is intubated. He is under the influence of a little bit of sedation. HEENT: Normocephalic, atraumatic. Sclerae white. Conjunctivae pink. Oral mucosa is moist without lesions. LUNGS: Decent air entry. No prolonged expiratory phase or wheezing is appreciated. HEART: Normal rate. Regular. ABDOMEN: Soft, nontender, and nondistended. Bowel sounds are positive. MUSCULOSKELETAL: No cyanosis or clubbing. No pitting edema. NEUROLOGIC: Left side remains flaccid. The right upper and lower extremity move spontaneously. He comfortably overbreathes the ventilator and demonstrates decent cough and gag. He has unequal eyes. The right is dilated and fixed and nonresponsive with light. The left is smaller, but does have a normal reaction. LABORATORY DATA: Sodium 147, chloride 119, creatinine 0.97. Magnesium and phosphorous fall within normal limits. ASSESSMENT: 1. Intracranial hemorrhage. 2. Acute hypoxic respiratory failure, improving. 3. Community-acquired pneumonia secondary to overt aspiration. DISCUSSION AND PLAN: Palliative Care discussions are being had. Apparently, the patient would not want to live under these circumstances. That being said, he can follow some simple commands, and may be able to participate in these discussions. Currently, secretions are quite heavy. It is not clear to me that he will be able to handle them. As such, I will leave him on mechanical ventilation for an additional day. Multiple adjustments have been made to the ventilator to turn a little bit more work of breathing over to him. From my perspective, this stroke is going to evolve over a period of several weeks. He will undoubtedly have permanent debility through time, but the extent of that is currently unknown. Critical Care will follow in this location. Critical care time: 30 minutes. Job ID: [id number] [facility]
--- NOTE | 2018-11-24 11:14 | PRG ---
DATE OF SERVICE: 11/24/2018 SUBJECTIVE: The patient is receiving a light sedation. He is on propofol at 10. He has intermittent response to the right upper extremity. OBJECTIVE: VITAL SIGNS: Blood pressure is 157/77, pulse is 70, respiratory rate is 26, and pulse oximetry is 98. His maximal temperature 102.5 and this morning, his temperature is 102.4. He is on mechanical ventilation. His FiO2 is 27, tidal volume 470, PEEP of 5, and pressure support 11. He is orally intubated. LUNGS: Clear. HEART: S1 and S2 normal. No S3. No S4. ABDOMEN: Soft and nontender. Bowel sounds sluggish. EXTREMITIES: No clubbing, cyanosis, or edema. NEUROLOGIC: His right pupil is still dilated, but it is smaller than what it was yesterday. There is minimal response to light. The left pupil is small and there is not much response to light. From time to time, he follows by squeezing the right upper extremity, this all motor function we can get from him. LABORATORY DATA: Sodium of 150, potassium 3.3, chloride 122, CO2 22, BUN 21, creatinine 0.91, and glycemia is ranging from 175 to 214. IMPRESSION: 1. Acute intracranial hemorrhage. 2. Acute hypoxic respiratory failure. 3. Electrolyte imbalance with hypokalemia, hypernatremia, and hyperchloremia. 4. Hyperglycemia. PLAN: I will go up on his long-acting insulin to 20 units subcutaneously every 24 hours plus sliding scale every 6 hours mild. Also, I will start him on 2.5 mg of an amlodipine through the tube and the family is willing to wait additional few days to see whether this is going to help the patient to improve and most likely after the weekend, they will make decision about the PEG tube and tracheostomy tube placement. Corporate Safety Manager is going to make decision regarding a hypernatremia and hyperchloremia management. Job ID: [id number]
[2018-11-24] MEDS: Morphine 2 MG/ML SYRINGE SLOW IVP PRN (12:34)
--- NOTE | 2018-11-24 13:25 | PRG ---
DATE OF SERVICE: 11/24/2018 SERVICE: Pulmonary Medicine. INTERVAL HISTORY: The patient is doing fine from a respiratory standpoint. He is intermittently following with movements on the right upper and lower extremity. The left side remains flaccid. He is requiring a little bit of sedation in order to maintain comfort, but otherwise, there has been no change to his condition. PHYSICAL EXAMINATION: VITAL SIGNS: Afebrile, pulse 70, blood pressure 157/77, respirations 26, saturation 98%, currently on 23% FiO2 and a PEEP of 5. GENERAL: The patient is intubated, on minimal sedation to maintain comfort. He is quite somnolent. HEENT: Normocephalic and atraumatic. Sclerae white. Conjunctivae pink. Oral mucosa is moist without lesions. LUNGS: Decent air entry. No prolonged expiratory phase or wheezing is appreciated. HEART: Normal rate and regular. ABDOMEN: Soft, nontender, and nondistended. Bowel sounds are positive. MUSCULOSKELETAL: No cyanosis or clubbing. No pitting in the bilateral lower extremities. NEUROLOGIC: Left upper and lower extremity remain flaccid. The right pupil is dilated and fixed. He is nonresponsive with light. Left pupil is reactive. He is comfortably overbreathing the ventilator and demonstrates a good cough and gag. He is following some simple movements of the right upper and lower extremity to command. LABORATORY DATA: WBC 11.9, hemoglobin 16.2, platelets 94,000 and roughly stable. INR 1.5. Sodium 150, chloride 122, potassium 3.3, magnesium 2.2, and phosphorus 2.6. Urine drug screen is unremarkable otherwise. ASSESSMENT: 1. Acute hypoxic respiratory failure. 2. Intracranial hemorrhage. 3. Community-acquired pneumonia secondary to overt aspiration, improving. 4. Hypokalemia. 5. Hypernatremia. DISCUSSION AND PLAN: We will KVO the patient's IV fluids. We are going to initiate some tube feeds. After family discussion yesterday, the family would like to wait to see how things evolve through the weekend. When some other additional family members get here, they will be looking at either transition over to comfort care only or being extremely aggressive with tracheostomy and PEG tube placement. Critical Care will follow. CRITICAL CARE TIME: 30 minutes. Job ID: [id number] [facility]
[2018-11-25] MEDS: HumaLOG 300 UNITS/3 ML VIAL SC PRN ×5 (00:50→23:30)
[2018-11-25] MEDS: Acetaminophen 650 MG/20.3 ML UDCUP PO PRN ×4 (00:50→23:28)
[2018-11-25] MEDS: Morphine 2 MG/ML SYRINGE SLOW IVP PRN (05:26)
[2018-11-25] MEDS: Labetalol HCl 100 MG/20 ML VIAL SLOW IVP PRN (05:30)
[2018-11-25 06:01] LABS: Anion Gap 11 mmol/L (10-20); BUN (Urea Nitrogen) 27 mg/dL (8.4-25.7); Calc. Creatinine Clearance 98 mL/min (70-130); Calcium 8.7 mg/dL (7.8-10.44); Carbon Dioxide 21 mmol/L (22-29); Chloride 123 mmol/L (98-107); Estimated GFR-MDRD 79; Glucose 238 mg/dL (70-105); Potassium 4.1 mmol/L (3.5-5.1); Sodium 151 mmol/L (136-145)
[2018-11-25] MEDS: hydrALAZINE 20 MG/ML VIAL SLOW IVP PRN (07:17)
--- NOTE | 2018-11-25 07:31 | PRG ---
DATE OF SERVICE: 11/25/2018 I came to Mr. Morin's room this morning. Nursing reports there was a drop in oxygen and it was harder to keep his sats up on the ventilator overnight. No ultrasound of lower extremities and no CT chest was done yet. Mr. Morin has had fevers over the last 24 hours, some as high as 102.5 degrees Fahrenheit. Oxygen saturation has been in the 80s. Blood pressures have been 130s to 150s. As I tried to examine Mr. Morin, I noticed that his propofol has ran at twice the rate it was yesterday. This clouds his examination. I will order CT head this morning to see if the ventricular system is enlarged. I will re-examine Mr. Morin before or after my operation later today and hopefully, we can stop the propofol to see his level of neurological function. I will defer to Critical Care Medicine and our Internal Medicine team whether a spiral CT of the chest should be ordered to rule out pulmonary embolus. In the end, family will need to make decisions about care we offer going forward , and I will follow up with them this afternoon. Job ID: [id number] MICHAEL
[2018-11-25 07:39] LABS: Actual Bicarbonate (HCO3a) 21.3 mEq/L (22-28); Base Excess (BEa) -0.6 mEq/L (-2.0 to +3.0); CO2 Tension 29.8 mmHg (35.0-45.0); Calcium, Ionized 1.27 mmol/L (1.12-1.30); Hemoglobin (Hb) 19.3 g/dL (14.0-18.0); Potassium - ABG Lab 4.09 mmol/L (3.70-5.30); pH, Arterial 7.47 (7.35-7.45)
[2018-11-25 07:40] LABS: O2 Tension (PaO2) 54.5 mmHg (80.0-100.0)
[2018-11-25 07:41] LABS: Puncture Site RB
--- NOTE | 2018-11-25 08:59 | CT ---
Exam: Head CT without contrast HISTORY: Mental status change. Intracranial hemorrhage. COMPARISON: 11/21/2018 FINDINGS: Hemorrhage: Stable intraparenchymal hemorrhage centered into the midbrain and supriya and extending into the right thalamus/deep platt matter structures. Currently, hematoma measures 1.9 x 3.9 cm. There is evidence of intraventricular hemorrhage fourth ventricle. Stable configuration of the ventricular system. There is evidence of a small amount of subarachnoid blood, near the vertex. Brain parenchyma: Cortical platt-white matter differentiation is preserved. No mass effect or midline shift. Basilar cisterns are patent. Ventricular system: Persistent dilatation of ventricular system Calvarium: Intact. Sinuses and mastoid air cells: Significant opacification the paranasal sinuses. IMPRESSION: 1. Essentially stable intracranial hemorrhage. There does appear to be extension of hemorrhage into t he fourth ventricle. 2. Persistent dilatation of ventricular system.
--- NOTE | 2018-11-25 09:36 | CT ---
EXAM: CT angiogram of the chest including 3-D rendering: HISTORY: Low saturation, tachycardia COMPARISON: None FINDINGS: Some of the more peripheral pulmonary branches are somewhat less than optimally opacified. No evidence for aortic aneurysm or dissection. No convincing CT evidence for acute pulmonary embolism. Bilateral lower lobe parenchymal changes evidence for atelectasis and/or pneumonia. Minimal pleural t hickening. No evidence for mediastinal mass or adenopathy. No evidence for pleural or pericardial effusion. Cholelithiasis within a minimally distended gallbladder without gallbladder wall thickening or perich olecystic fluid or fat stranding. Several small circumscribed low-attenuation densities within the liver incompletely characterized but possibly small cysts. Minimal splenomegaly. IMPRESSION: No convincing CT evidence for acute pulmonary embolism. Bilateral lower lobe confluent opacity changes evidence for bilateral pneumonia and/or atelectasis. Other nonemergent findings in the abdomen. Minimal splenomegaly.
[2018-11-25] MEDS ORDERED: Labetalol HCl 100 MG/20 ML VIAL SLOW IVP SCH (10:00)
[2018-11-25] MEDS ORDERED: Adenosine 6 MG/2 ML VIAL IVP SCH (10:15)
--- NOTE | 2018-11-25 10:23 | PRG ---
DATE OF SERVICE: 11/25/2018 SERVICE: Pulmonary Medicine. INTERVAL HISTORY: The patient is doing very poorly from mentation standpoint. Around 5 o'clock this morning, he started developing increasing tachycardia, fevers to 103, hypertension, and became nonresponsive on the right side. He cannot provide any additional elements of the history. He is on a little bit of propofol to maintain some degree of comfort. PHYSICAL EXAMINATION: GENERAL: The patient is intubated and sedated. HEENT: Normocephalic and atraumatic. Sclerae white. Conjunctivae pink. Oral mucosa is moist without lesions. LUNGS: Decreased air entry. Rhonchi are present. No crackles are appreciated. HEART: Tachycardic. Regular. ABDOMEN: Soft, nontender, and nondistended. Bowel sounds are positive. MUSCULOSKELETAL: No cyanosis or clubbing. No pitting in the bilateral lower extremities. NEUROLOGIC: He is not withdrawing from noxious stimuli in the bilateral upper or lower extremities. The pupils are same compared to yesterday. He comfortably overbreathes the ventilator, but does not demonstrate a gag or cough today. LABORATORY DATA: A pH 7.47, pCO2 of 29, pO2 of 54. Creatinine 0.99, sodium 151, and chloride 123. IMAGIN. CT of the brain demonstrates a hemorrhagic stroke in the thalamus. It appears to be slightly larger in volume than it did previously. There is now some extension of the hemorrhage into the fourth ventricle. There is dilation of the ventricular system. 2. CTA of the chest demonstrates no evidence of a PE. He has bibasilar infiltrates, consistent with aspiration related disease. ASSESSMENT: 1. Acute hypoxic respiratory failure. 2. Community-acquired pneumonia secondary to overt aspiration. 3. Intracranial hemorrhage with severe neurologic derangement, now with intraventricular extension. 4. Hypokalemia, resolved. 5. Hypernatremia, stable. DISCUSSION AND PLAN: We will continue supportive care moving forward. I am going to give the patient multiple dose of labetalol. We will get a stat EKG to determine whether or not this is in atrial flutter with 2:1 conduction versus a sinus tachycardia. We will try to drop his blood pressure to below 140. Unfortunately, this is a fairly devastating injury, and my suspicion is that he has now suffered neurologic injury from which he will not recover. I have updated the family at bedside today. They would like to continue supportive measures for the next 24 to 48 hours to see whether or not he makes any significant neurologic improvement. If he does not, I do believe that he will be transitioning over to comfort care through the weekend. It seems to me that tracheostomy and PEG tube placement with permanent debility would not be in keeping with the patient's value structure. As such, I would be hesitant to proceed with aggressive care through time unless expectations are that he could make a very robust recovery. CRITICAL CARE TIME: 30 minutes. Job ID: [id number]
[2018-11-25] MEDS: Famotidine/PF 20 mg/2ml Vial SLOW IVP SCH ×2 (10:32→20:10)
[2018-11-25] MEDS: Cyanocobalamin (Vitamin B-12) 1,000 MCG TAB PO SCH (10:32)
[2018-11-25] MEDS: Folic Acid 1 MG TAB PO SCH (10:32)
[2018-11-25] MEDS: Insulin Glargine 20 UNITS in Pre-Filled Syringe 1 EACH SC SCH (10:33)
[2018-11-25] MEDS: Sodium Chloride 0.9% 1,000 ML IV SCH ×2 (14:22→18:12)
--- NOTE | 2018-11-25 14:45 | PDOC.PALPN ---
Palliative Progress Note - Subjective Sedated, mechanical ventilation, family at bedside. ROS: patient non responsive - Objective Vital Signs: Vital Signs - Most Recent Temp Pulse Resp BP Pulse Ox 102.8 F H 108 H 30 H 123/72 97 11/25/18 12:00 11/25/18 13:32 11/25/18 14:00 11/25/18 13:32 11/25/18 11:32 - Physical Exam Deviation from normal: ill appearing, mechanical ventilation, sedated HEENT: moist MMs, sclera anicteric Deviation from normal: Adventicious to upper lobes, diminished to bases Cardiovascular: no significant murmur Deviation from normal: Tahcycardiac Gastrointestinal: soft, non-tender, no distention, positive bowel sounds Musculoskeletal: pulses present, no clubbing Lymphatic: no nodes Deviation from normal: sedated Skin: no rash - Assessment (1) Palliative care encounter Code(s): Z51.5 - ENCOUNTER FOR PALLIATIVE CARE Current Visit: Yes Status: Acute (2) Hemorrhage of brainstem Code(s): I61.3 - NONTRAUMATIC INTRACEREBRAL HEMORRHAGE IN BRAIN STEM Current Visit: Yes Status: Acute Qualifiers: Intracerebral hemorrhage etiology: nontraumatic (3) Respiratory failure requiring intubation Code(s): J96.90 - RESPIRATORY FAILURE, UNSP, UNSP W HYPOXIA OR HYPERCAPNIA Current Visit: Yes Status: Acute - Plan Plan: Continue with support for family. Dr Whelan met with family, patient febrile this morning. CT performed to rule out Pulmonary embolism. Dr Whelan provided insight and answered questions for patients mother and his children. *Continue to monitor patient and revisit options of Trach/PEG Thursday [40] minutes spent on this encounter with >50% of the time in counseling and coordination of care.
[2018-11-25] MEDS ORDERED: ISOVUE-370 76%-LOCM 1 ML ONE (14:52)
--- NOTE | 2018-11-25 15:44 | PDOC.HOSPP ---
- Subjective Subjective: Seen and examined. On propofol. Case discussed with family at bedside, all questions answered in detail. CT angiography of the chest negative for pulmonary embolism. Discussed CT scan of the brain results with patient's family. Prognosis for meaningful recovery is guarded. - Objective Vital Signs & Weight: Vital Signs (12 hours) Temp Pulse Pulse Pulse Resp BP BP 11/25/18 14:00 30 H 11/25/18 13:32 108 H 123/72 11/25/18 12:00 102.8 F H 25 H 11/25/18 11:32 107 H 108 H 113/69 11/25/18 10:30 116 H 123/74 11/25/18 10:00 28 H 11/25/18 08:00 36 H 11/25/18 07:25 114 H 181/97 H 11/25/18 07:17 75 181/97 H 11/25/18 07:00 103.3 F H 11/25/18 06:00 36 H 11/25/18 05:30 75 184/103 H 11/25/18 05:00 99.4 F 11/25/18 04:00 24 H BP Pulse Ox Pulse Ox Pulse Ox 11/25/18 14:00 11/25/18 13:32 11/25/18 12:00 11/25/18 11:32 117/70 97 97 11/25/18 10:30 11/25/18 10:00 11/25/18 08:00 93 L 11/25/18 07:25 11/25/18 07:17 11/25/18 07:00 11/25/18 06:00 11/25/18 05:30 11/25/18 05:00 11/25/18 04:00 Weight Admit Weight 179 lb Weight 179 lb 14.355 oz Most Recent Monitor Data Heart Rate from ECG 105 NIBP 133/79 NIBP BP-Mean 97 Respiration from ECG 31 SpO2 96 I&O: 11/24/18 11/25/18 11/26/18 06:59 06:59 06:59 Intake Total 1933.4 2061.6 Output Total 1905 1695 535 Balance 28.4 366.6 -535 Result Diagrams: 11/22/18 08:00 11/25/18 05:12 Additional Labs: Accuchecks 11/25/18 11/25/18 11/24/18 13:06 00:45 18:16 POC Glucose 205 H 192 H 180 H Hospitalist ROS - Review of Systems ROS unobtainable: due to endotracheal tube - Medication Medications: Active Medications Generic Name Dose Route Start Last Admin Trade Name Freq PRN Reason Stop Dose Admin Acetaminophen 650 mg 11/21/18 20:15 11/25/18 09:22 Tylenol Elixir PO 650 mg Q6H PRN Administration Fever > 101 or Headache Cyanocobalamin 1,000 mcg 11/23/18 09:00 11/25/18 10:32 Vitamin B-12 PO 1,000 mcg DAILY DAVID Administration Famotidine 20 mg 11/20/18 21:00 11/25/18 10:32 Pepcid SLOW IVP 20 mg Q12HR DAVID Administration Folic Acid 1 mg 11/23/18 09:00 11/25/18 10:32 Folvite PO 1 mg DAILY DAVID Administration Hydralazine HCl 10 mg 11/22/18 00:21 11/25/18 07:17 Apresoline SLOW IVP 10 mg Q4H PRN Administration TO KEEP SBP Less Than 150 Insulin Glargine 20 units/ 0.2 mls @ 0 mls/hr 11/24/18 09:00 11/25/18 10:33 Miscellaneous Medication SC 0.2 mls QAM DAVID Administration Sodium Chloride 1,000 mls @ 25 mls/hr 11/24/18 12:37 11/25/18 14:22 Normal Saline 0.9% IV Not Given .Q24H DAVID Insulin Human Lispro 0 units 11/21/18 07:17 11/25/18 13:08 Humalog SC 3 unit .MILD SLIDING SCALE PRN Administration Mild Correctional Scale Labetalol HCl 10 mg 11/20/18 13:27 11/25/18 05:30 Normodyne SLOW IVP 10 mg Q4H PRN Administration SBP > 140 or DBP > 90 Labetalol HCl 20 mg 11/25/18 10:00 11/25/18 09:38 Normodyne SLOW IVP 20 mg Q10MIN DAVID Administration Morphine Sulfate 2 mg 11/20/18 15:02 11/25/18 05:26 Morphine SLOW IVP 12/20/18 15:02 2 mg Q1H PRN Administration BREAKTHROUGH PAIN/Agitation Propofol 1,000 mg 11/20/18 15:02 11/24/18 19:50 Diprivan IV 12/20/18 15:02 1,000 mg INF PRN Administration TO ACHIEVE GOAL RASS Protocol - Exam General Appearance: ill appearing Eye: anicteric sclera ENT: normocephalic atraumatic, dry oral mucosa Neck: supple, symmetric, no lymphadenopathy Heart: no murmur, no gallops, no rubs Respiratory: CTAB, no wheezes, no rales, no ronchi, normal chest expansion Gastrointestinal: soft, non-tender, non-distended, no guarding, no rigidity Extremities: no edema Skin: no lesions, no rashes Neurological: no new deficit, hemiplegia, speech deficit Musculoskeletal: normal tone Psychiatric: not oriented Hosp A/P (1) Hemorrhage of brainstem Code(s): I61.3 - NONTRAUMATIC INTRACEREBRAL HEMORRHAGE IN BRAIN STEM Status: Acute Qualifiers: Intracerebral hemorrhage etiology: nontraumatic (2) Respiratory failure requiring intubation Code(s): J96.90 - RESPIRATORY FAILURE, UNSP, UNSP W HYPOXIA OR HYPERCAPNIA Status: Acute (3) Community acquired bacterial pneumonia Code(s): J15.9 - UNSPECIFIED BACTERIAL PNEUMONIA Status: Acute (4) Fever Code(s): R50.9 - FEVER, UNSPECIFIED Status: Acute (5) Tachycardia Code(s): R00.0 - TACHYCARDIA, UNSPECIFIED Status: Acute - Plan Plan: neurosurgery consultation, recommendations appreciated management per tattooer, recommendations appreciated palliative care consultation, recommendations appreciated repeat CT scan of the brain from this a.m. noted CT angiography of the chest negative for pulmonary embolism, bilateral pneumonia Defer ABX to pulmonology Propofol/ fentanyl for sedation overall prognosis for meaningful recovery is guarded agree with do not resuscitate
[2018-11-25] MEDS: Propofol 1,000 MG/100 ML VIAL IV PRN (18:11)
--- NOTE | 2018-11-25 23:52 | EKG ---
Test Reason : Blood Pressure : / mmHG Vent. Rate : 120 BPM Atrial Rate : 120 BPM P-R Int : 128 ms QRS Dur : 082 ms QT Int : 310 ms P-R-T Axes : 058 -68 076 degrees QTc Int : 438 ms Sinus tachycardia Left axis deviation Inferior infarct , age undetermined Abnormal ECG When compared with ECG of 20-NOV-2018 12:24, Vent. rate has increased BY 43 BPM Left anterior fascicular block is no longer Present Incomplete right bundle branch block is no longer Present Inferior infarct is now Present Confirmed by Ivory BIGGS ([id number]) on 11/25/2018 11:52:12 PM Referred By: DIANE Confirmed By:Ivory BIGGS
[2018-11-26 06:30] LABS: Anion Gap 13 mmol/L (10-20); BUN (Urea Nitrogen) 31 mg/dL (8.4-25.7); Calc. Creatinine Clearance 95 mL/min (70-130); Calcium 9.4 mg/dL (7.8-10.44); Carbon Dioxide 20 mmol/L (22-29); Chloride 125 mmol/L (98-107); Estimated GFR-MDRD 74; Glucose 289 mg/dL (70-105); Potassium 4.5 mmol/L (3.5-5.1); Sodium 153 mmol/L (136-145)
[2018-11-26] MEDS: HumaLOG 300 UNITS/3 ML VIAL SC PRN ×3 (06:48→18:22)
--- NOTE | 2018-11-26 07:12 | PRG ---
DATE OF SERVICE: 11/25/2018 I returned to Mr. Morin's bedside in the afternoon of November 25. I called the nurse to stop the propofol. By the time I arrived, his neurological examination was back to the baseline that he has had all week. He keeps his eyes closed. The right pupil is large and nonreactive. The left pupil is pontine and small and barely reactive. He follows commands on the right side of the body. He is plegic on the left. Family including his sister and mother were in the room during the examination and I spoke to his son immediately thereafter. They are still in the decision making process regarding tracheostomy and gastrostomy. There has been no neurological change. He is going to have some permanent neurological deficits and some that proved temporary. The amount of disability will be significant, in my view, permanently. However, his cognitive function could be preserved and motor function on the right side is likely to be preserved as well. This discussion was exactly what I had with the family earlier over the weekend and earlier this week. I do not think there has been any changes in my long-term prognosis. Job ID: [id number] [facility]
--- NOTE | 2018-11-26 07:20 | PRG ---
DATE OF SERVICE: 11/26/2018 I stopped by Mr. Morin's room this morning in the ICU. No events were reported overnight. He remains on the ventilator. The family has not made a final decision about tracheostomy and gastrostomy. Overnight, the T-max was 103.3 degrees Fahrenheit, it was early yesterday morning. The fever curve has come down a bit, but he is still in the febrile range. Other vital signs look stable with blood pressures of 130. On examination, Mr. Morin has propofol running with enough stimulation. He wakes just enough to follow commands briefly before falling back to sleep. I do not see any change in his pupillary size or asymmetry or lack of reaction from previous examinations this week. There has been no change in the neurological examination. There is no change in my prognostication about his permanent outcome and we are waiting on family to make a decision. They may want to watch him over the weekend. Job ID: [id number]
--- NOTE | 2018-11-26 09:46 | PRG ---
DATE OF SERVICE: 11/26/2018 SERVICE: Pulmonary Medicine. INTERVAL HISTORY: The patient is doing quite a bit better from a neurologic standpoint. Once again, he seems to be following. I have reports that he is moving his right upper and lower extremity with sedation holidays. That being said, he is currently sedated and I cannot get any movement of him presently. PHYSICAL EXAMINATION: VITAL SIGNS: T-max 103, though recently he has been afebrile; pulse 76; blood pressure 129/81; respirations 15; saturation 100%, currently on 31% FiO2 and a PEEP of 5. GENERAL: The patient is intubated and sedated. HEENT: Normocephalic and atraumatic. Sclerae are white. Conjunctivae are pink. Oral mucosa is moist without lesions. LUNGS: Decent air entry. Rhonchi are present. No prolonged expiratory phase or wheezing is appreciated. HEART: Normal rate, regular. ABDOMEN: Soft, nontender, and nondistended. Bowel sounds are positive. MUSCULOSKELETAL: No pitting in bilateral lower extremities. NEUROLOGIC: I am told recently, he has been following commands again in the right upper and lower extremity. His left upper and lower extremity remain flaccid. His eyes are unequal. He is overbreathing the ventilator and demonstrates a better cough and gag today. LABORATORY DATA: WBC 11.9, hemoglobin 16.2, platelets 94,000 and downtrending. INR 1.3. Sodium gently up-trending to 153, chloride 125. Basic metabolic profile is otherwise unremarkable. ASSESSMENT: 1. Acute hypoxic respiratory failure. 2. Community-acquired pneumonia secondary to overt aspiration. 3. Intracranial hemorrhage with intraventricular extension. 4. Hypernatremia, increasing. DISCUSSION AND PLAN: The patient's sodium is at the upper limits of where I would like it to be. We will continue our tube feeds. I am going to introduce a very slow rate of half-normal saline. My goal is to keep him at about 150 over the next 24 hours. I will repeat a CBC, and other laboratories tomorrow morning. Pulmonary/Critical Care will follow. CRITICAL CARE TIME: 30 minutes. Job ID: [id number]
[2018-11-26] MEDS: Acetaminophen 650 MG/20.3 ML UDCUP PO PRN (11:34)
[2018-11-26] MEDS: hydrALAZINE 20 MG/ML VIAL SLOW IVP PRN ×2 (11:34→15:50)
[2018-11-26] MEDS: Piperacillin/Tazobactam 3.375 GM in Sodium Chloride 0.9% 100 ML IVPB SCH ×2 (11:35→18:16)
[2018-11-26] MEDS: Insulin Glargine 20 UNITS in Pre-Filled Syringe 1 EACH SC SCH (11:36)
[2018-11-26] MEDS: Famotidine/PF 20 mg/2ml Vial SLOW IVP SCH ×2 (11:43→19:50)
[2018-11-26] MEDS: Folic Acid 1 MG TAB PO SCH (11:44)
[2018-11-26] MEDS: Sodium Chloride 0.45% 1,000 ML IV SCH (11:44)
[2018-11-26] MEDS: Cyanocobalamin (Vitamin B-12) 1,000 MCG TAB PO SCH (11:49)
[2018-11-26] MEDS: Propofol 1,000 MG/100 ML VIAL IV PRN (11:59)
--- NOTE | 2018-11-26 16:01 | PDOC.HOSPP ---
- Subjective Subjective: Seen and examined. Patient intubated, sedated, does not follow commands for me this morning on sedation. - Objective Vital Signs & Weight: Vital Signs (12 hours) Temp Pulse Pulse Resp BP BP BP 11/26/18 15:51 130 H 157/102 H 11/26/18 15:50 129 H 157/102 H 11/26/18 13:57 138 H 129/69 11/26/18 11:34 110 H 156/83 H 11/26/18 11:15 105 H 11/26/18 10:00 27 H 11/26/18 08:37 84 133/71 129/71 11/26/18 08:00 98.9 F 24 H 11/26/18 07:29 76 129/81 11/26/18 06:00 28 H 11/26/18 05:00 98.4 F 11/26/18 04:00 25 H Weight Admit Weight 179 lb Weight 181 lb 14.102 oz Most Recent Monitor Data Heart Rate from ECG 146 NIBP 159/80 NIBP BP-Mean 106 Respiration from ECG 35 SpO2 98 I&O: 11/25/18 11/26/18 11/27/18 06:59 06:59 06:59 Intake Total 2061.6 1904.0 Output Total 1695 1370 415 Balance 366.6 534.0 -415 Result Diagrams: 11/22/18 08:00 11/26/18 05:37 Additional Labs: Accuchecks 11/26/18 11/25/18 11/25/18 11:24 23:30 18:27 POC Glucose 253 H 208 H 193 H Radiology Reviewed by me: Yes (CT head) Hospitalist ROS - Review of Systems ROS unobtainable: due to endotracheal tube - Medication Medications: Active Medications Generic Name Dose Route Start Last Admin Trade Name Freq PRN Reason Stop Dose Admin Acetaminophen 650 mg 11/21/18 20:15 11/26/18 11:34 Tylenol Elixir PO 650 mg Q6H PRN Administration Fever > 101 or Headache Cyanocobalamin 1,000 mcg 11/23/18 09:00 11/26/18 11:49 Vitamin B-12 PO 1,000 mcg DAILY DAVID Administration Famotidine 20 mg 11/20/18 21:00 11/26/18 11:43 Pepcid SLOW IVP 20 mg Q12HR DAVID Administration Folic Acid 1 mg 11/23/18 09:00 11/26/18 11:44 Folvite PO 1 mg DAILY DAVID Administration Hydralazine HCl 10 mg 11/22/18 00:21 11/26/18 15:50 Apresoline SLOW IVP 10 mg Q4H PRN Administration TO KEEP SBP Less Than 150 Insulin Glargine 20 units/ 0.2 mls @ 0 mls/hr 11/24/18 09:00 11/26/18 11:36 Miscellaneous Medication SC 0.2 mls QAM DAVID Administration Sodium Chloride 1,000 mls @ 50 mls/hr 11/26/18 09:00 11/26/18 11:44 1/2 Normal Saline IV 1,000 mls .Q20H DAVID Administration Piperacillin Sod/Tazobactam 100 mls @ 200 mls/hr 11/26/18 12:00 11/26/18 11: 35 Sod 3.375 gm/ Sodium Chloride IVPB 100 mls Q6HR DAVID Administration Insulin Human Lispro 0 units 11/21/18 07:17 11/26/18 11:42 Humalog SC 4 unit .MILD SLIDING SCALE PRN Administration Mild Correctional Scale Labetalol HCl 10 mg 11/20/18 13:27 11/25/18 05:30 Normodyne SLOW IVP 10 mg Q4H PRN Administration SBP > 140 or DBP > 90 Labetalol HCl 20 mg 11/25/18 10:00 11/25/18 09:38 Normodyne SLOW IVP 20 mg Q10MIN DAVID Administration Morphine Sulfate 2 mg 11/20/18 15:02 11/25/18 05:26 Morphine SLOW IVP 12/20/18 15:02 2 mg Q1H PRN Administration BREAKTHROUGH PAIN/Agitation Propofol 1,000 mg 11/20/18 15:02 11/26/18 11:59 Diprivan IV 12/20/18 15:02 1,000 mg INF PRN Administration TO ACHIEVE GOAL RASS Protocol - Exam General Appearance: ill appearing Eye: anicteric sclera ENT: normocephalic atraumatic, dry oral mucosa Neck: supple, symmetric Heart: no murmur, no gallops, no rubs Respiratory: CTAB, no wheezes, no rales, no ronchi Gastrointestinal: soft, non-tender, non-distended, normal bowel sounds, no guarding, no rigidity Extremities: no cyanosis, no edema Skin: no lesions, no rashes Neurological - other findings: Does not follow commands on sedation, report of following on right Musculoskeletal: normal tone, no muscle wasting Hosp A/P (1) Hemorrhage of brainstem Code(s): I61.3 - NONTRAUMATIC INTRACEREBRAL HEMORRHAGE IN BRAIN STEM Status: Acute Qualifiers: Intracerebral hemorrhage etiology: nontraumatic (2) Respiratory failure requiring intubation Code(s): J96.90 - RESPIRATORY FAILURE, UNSP, UNSP W HYPOXIA OR HYPERCAPNIA Status: Acute (3) Community acquired bacterial pneumonia Code(s): J15.9 - UNSPECIFIED BACTERIAL PNEUMONIA Status: Acute (4) Fever Code(s): R50.9 - FEVER, UNSPECIFIED Status: Acute (5) Tachycardia Code(s): R00.0 - TACHYCARDIA, UNSPECIFIED Status: Acute - Plan Plan: ICU neurosurgery consultation, recommendations appreciated management per refrigerator repairman, recommendations appreciated palliative care consultation, recommendations appreciated repeat CT scan of the brain noted CT angiography of the chest negative for pulmonary embolism, bilateral pneumonia Defer ABX to pulmonology Propofol/ fentanyl for sedation overall prognosis for meaningful recovery is guarded agree with do not resuscitate Family considering withdrawal of care vs Trach/ peg
[2018-11-27] MEDS: HumaLOG 300 UNITS/3 ML VIAL SC PRN ×5 (00:01→23:30)
[2018-11-27] MEDS: Sodium Chloride 0.45% 1,000 ML IV SCH ×3 (05:27→23:28)
[2018-11-27] MEDS: Propofol 1,000 MG/100 ML VIAL IV PRN (05:28)
[2018-11-27] MEDS: Piperacillin/Tazobactam 3.375 GM in Sodium Chloride 0.9% 100 ML IVPB SCH ×5 (05:31→23:28)
[2018-11-27 07:20] LABS: Anion Gap 12 mmol/L (10-20); BUN (Urea Nitrogen) 35 mg/dL (8.4-25.7); Calc. Creatinine Clearance 96 mL/min (70-130); Calcium 9.2 mg/dL (7.8-10.44); Carbon Dioxide 20 mmol/L (22-29); Chloride 125 mmol/L (98-107); Estimated GFR-MDRD 74; Glucose 302 mg/dL (70-105); Magnesium 2.1 mg/dL (1.6-2.6); Phosphorus 3.5 mg/dL (2.3-4.7); Potassium 4.6 mmol/L (3.5-5.1); Sodium 152 mmol/L (136-145)
[2018-11-27 08:07] LABS: #Eosinphils 0.2 thou/uL (0.0-0.7); #Lymphocytes 1.4 thou/uL (1.20-3.40); #Monocytes 1.7 thou/uL (0.11-0.59); #Neutrophils 9.3 thou/uL (1.40-6.50); %Basophils 0.4 % (0.0-1.0); %Eosinophils 1.2 % (0.0-10.0); %Lymphocytes 11.3 % (21.0-51.0); %Monocytes 13.4 % (0.0-10.0); %Neutrophils 73.7 % (42.0-75.0); Hemoglobin 16.4 g/dL (14.0-18.0); MDiff Complete? YES; Macrocytosis SLIGHT = 6-15 cells (100X) (0-5/hpf); Mean Corpuscular HGB CONC 31.5 g/dL (32.0-36.0); Mean Corpuscular Hemoglobin 34.7 pg (27.0-31.0); Mean Platelet Volume 11.4 fL (7.4-10.4); Platelet Count 94 thou/uL (130-400); Platelet Morphology Comment Appears Decreased; RBC Distribution Width 12.4 % (11.5-14.5); Red Blood Cell (RBC) Count 4.74 mill/uL (4.70-6.10); White Blood Cell (WBC) Count 12.6 thou/uL (4.8-10.8)
[2018-11-27] MEDS: Insulin Glargine 20 UNITS in Pre-Filled Syringe 1 EACH SC SCH (09:59)
[2018-11-27] MEDS: Famotidine/PF 20 mg/2ml Vial SLOW IVP SCH ×2 (10:00→20:45)
[2018-11-27] MEDS: Folic Acid 1 MG TAB PO SCH (10:00)
[2018-11-27] MEDS: Cyanocobalamin (Vitamin B-12) 1,000 MCG TAB PO SCH (10:08)
--- NOTE | 2018-11-27 11:16 | PRG ---
DATE OF SERVICE: 11/27/2018 SERVICE: Pulmonary Medicine. INTERVAL HISTORY: The patient is doing very good from a respiratory standpoint. Oxygen requirements seem to be improving. Mental status has yet to change very significantly. He cannot provide any additional elements of the history at this point. There has been no interval change to his condition overnight. He is having some low-grade temperatures, but his profile is improving. The significant sputum production he was previously demonstrating is also improved. PHYSICAL EXAMINATION: VITAL SIGNS: Afebrile, pulse 81, blood pressure 119/70, respirations 24, saturation 96%, currently on 27% FiO2 and a PEEP of 5. GENERAL: The patient is intubated and sedated. HEENT: Normocephalic and atraumatic. Sclerae white. Conjunctivae pink. Oral mucosa is moist without lesions. LUNGS: Decent air entry. Rhonchi are present but much improved. HEART: Normal rate and regular. ABDOMEN: Soft, nontender, nondistended. Bowel sounds are positive. MUSCULOSKELETAL: No cyanosis or clubbing. No pitting in the bilateral lower extremities. NEUROLOGIC: He has a dense hemiparesis on the left. He is following commands on the right. LABORATORY DATA: WBC 12.6, hemoglobin 16.4, platelets 94,000 and roughly stable. INR 1.3. Sodium 152 and gently downtrending, chloride 125, and bicarb 20. BUN is gently up trending to 35, creatinine 1.05 and stable. Magnesium and phosphorous fall within normal limits. ASSESSMENT: 1. Acute hypoxic respiratory failure, improving. 2. Community-acquired pneumonia secondary to overt aspiration. 3. Intracranial hemorrhage with intraventricular extension, mild. 4. Hypernatremia, stable. DISCUSSION AND PLAN: I will gently push his rate of half-normal saline to 75 mL/h. We will continue supportive care otherwise including tube feeds and antibiotics. I will likely proceed with a spontaneous breathing trial followed by extubation tomorrow once his secretions improved ever so slightly more to see whether or not he can protect his airway without this tube. I am doubtful that he will be able to swallow safely within the next 6 weeks. As such, if he tolerates extubation, a PEG tube will need to be considered. CRITICAL CARE TIME: 30 minutes. Job ID: [id number]
--- NOTE | 2018-11-27 14:09 | PDOC.HOSPP ---
- Subjective Subjective: Seen and examined. Clinically unchanged. Family at bedside. - Objective Vital Signs & Weight: Vital Signs (12 hours) Temp Pulse Resp Pulse Ox 11/27/18 12:00 26 H 11/27/18 10:55 88 11/27/18 10:00 25 H 11/27/18 08:00 22 H 95 11/27/18 06:41 77 11/27/18 06:00 99.4 F 23 H 11/27/18 05:00 99.9 F H 11/27/18 04:00 99.6 F 22 H 11/27/18 03:32 90 11/27/18 03:00 99.1 F Weight Admit Weight 179 lb Weight 181 lb 10.574 oz Most Recent Monitor Data Heart Rate from ECG 87 NIBP 101/57 NIBP BP-Mean 71 Respiration from ECG 24 SpO2 96 I&O: 11/26/18 11/27/18 11/28/18 06:59 06:59 06:59 Intake Total 1904.0 2583.6 120 Output Total 1370 1940 Balance 534.0 643.6 120 Result Diagrams: 11/27/18 06:45 11/27/18 06:45 Additional Labs: Accuchecks 11/27/18 11/27/18 11/26/18 05:36 00:01 18:23 POC Glucose 255 H 297 H 267 H Hospitalist ROS - Review of Systems ROS unobtainable: due to endotracheal tube - Medication Medications: Active Medications Generic Name Dose Route Start Last Admin Trade Name Freq PRN Reason Stop Dose Admin Acetaminophen 650 mg 11/21/18 20:15 11/26/18 11:34 Tylenol Elixir PO 650 mg Q6H PRN Administration Fever > 101 or Headache Cyanocobalamin 1,000 mcg 11/23/18 09:00 11/27/18 10:08 Vitamin B-12 PO 1,000 mcg DAILY DAVID Administration Docusate Sodium 100 mg 11/20/18 13:27 11/27/18 00:01 Colace PO 100 mg BIDPRN PRN Administration Constipation Famotidine 20 mg 11/20/18 21:00 11/27/18 10:00 Pepcid SLOW IVP 20 mg Q12HR DAVID Administration Folic Acid 1 mg 11/23/18 09:00 11/27/18 10:00 Folvite PO 1 mg DAILY DAVID Administration Hydralazine HCl 10 mg 11/22/18 00:21 11/26/18 15:50 Apresoline SLOW IVP 10 mg Q4H PRN Administration TO KEEP SBP Less Than 150 Insulin Glargine 20 units/ 0.2 mls @ 0 mls/hr 11/24/18 09:00 11/27/18 09:59 Miscellaneous Medication SC 0.2 mls QAM DAVID Administration Piperacillin Sod/Tazobactam 100 mls @ 200 mls/hr 11/26/18 12:00 11/27/18 12: 30 Sod 3.375 gm/ Sodium Chloride IVPB 100 mls Q6HR DAVID Administration Sodium Chloride 1,000 mls @ 75 mls/hr 11/27/18 10:51 11/27/18 11:00 1/2 Normal Saline IV 1,000 mls .[id number] DAVID Administration Insulin Human Lispro 0 units 11/21/18 07:17 11/27/18 05:34 Humalog SC 4 unit .MILD SLIDING SCALE PRN Administration Mild Correctional Scale Labetalol HCl 10 mg 11/20/18 13:27 11/25/18 05:30 Normodyne SLOW IVP 10 mg Q4H PRN Administration SBP > 140 or DBP > 90 Labetalol HCl 20 mg 11/25/18 10:00 11/25/18 09:38 Normodyne SLOW IVP 20 mg Q10MIN DAVID Administration Propofol 1,000 mg 11/20/18 15:02 11/27/18 05:28 Diprivan IV 12/20/18 15:02 1,000 mg INF PRN Administration TO ACHIEVE GOAL RASS Protocol - Exam General Appearance: ill appearing Eye: anicteric sclera ENT: no oropharyngeal lesions, dry oral mucosa Neck: supple, no lymphadenopathy Heart: RRR, no murmur, no gallops Respiratory: no rales, no ronchi, normal chest expansion, wheezes Gastrointestinal: soft, non-tender, non-distended, normal bowel sounds, no guarding, no rigidity Extremities: no edema Skin: no lesions, no rashes Neurological: no new deficit Neurological - other findings: Follows no commands on sedation this AM Musculoskeletal: no muscle wasting Psychiatric: not oriented Hosp A/P (1) Hemorrhage of brainstem Code(s): I61.3 - NONTRAUMATIC INTRACEREBRAL HEMORRHAGE IN BRAIN STEM Status: Acute Qualifiers: Intracerebral hemorrhage etiology: nontraumatic (2) Respiratory failure requiring intubation Code(s): J96.90 - RESPIRATORY FAILURE, UNSP, UNSP W HYPOXIA OR HYPERCAPNIA Status: Acute (3) Community acquired bacterial pneumonia Code(s): J15.9 - UNSPECIFIED BACTERIAL PNEUMONIA Status: Acute (4) Fever Code(s): R50.9 - FEVER, UNSPECIFIED Status: Acute (5) Tachycardia Code(s): R00.0 - TACHYCARDIA, UNSPECIFIED Status: Acute - Plan Plan: ICU neurosurgery consultation, recommendations appreciated management per piecer up, recommendations appreciated palliative care consultation, recommendations appreciated repeat CT scan of the brain noted CT angiography of the chest negative for pulmonary embolism, bilateral pneumonia Pulm specific ABX on Propofol/ fentanyl for sedation overall prognosis for meaningful recovery is guarded agree with do not resuscitate Family considering withdrawal of care vs Trach/ peg
[2018-11-27] MEDS: Acetaminophen 650 MG/20.3 ML UDCUP PO PRN (14:54)
[2018-11-27] MEDS ORDERED: Bisacodyl 10 MG SUPP PR PRN (17:57)
[2018-11-28 05:13] LABS: Anion Gap 13 mmol/L (10-20); BUN (Urea Nitrogen) 41 mg/dL (8.4-25.7); Calc. Creatinine Clearance 97 mL/min (70-130); Calcium 8.8 mg/dL (7.8-10.44); Carbon Dioxide 21 mmol/L (22-29); Chloride 125 mmol/L (98-107); Estimated GFR-MDRD 75; Glucose 274 mg/dL (70-105); Sodium 155 mmol/L (136-145)
[2018-11-28] MEDS: HumaLOG 300 UNITS/3 ML VIAL SC PRN ×4 (05:50→21:34)
[2018-11-28] MEDS: Piperacillin/Tazobactam 3.375 GM in Sodium Chloride 0.9% 100 ML IVPB SCH ×4 (05:50→23:26)
--- NOTE | 2018-11-28 07:08 | PRG ---
DATE OF SERVICE: 11/28/2018 Mr. Morin is a 53-year-old gentleman, remains in the ICU status post brainstem hemorrhage. Neurologically, his exam has remained for the most part unchanged over the last 24 to 48 hours. We are awaiting final word from family with respect to the level of care they wish to provide to him. Specifically, we await whether or not he wish to move forward with PEG and/or trach. Critical Care service as well as the Hospitalist service are following closely along. There are no plans for any neurosurgical intervention. His prognosis for recovery and return to functional status is extremely poor. Job ID: [id number]
--- NOTE | 2018-11-28 08:08 | PRG ---
DATE OF SERVICE: 11/28/2018 Mr. Morin is examined this morning and stable. Yesterday, systolic pressures have remained stable around 120s to 130s. It sounds like Pulmonary may try to extubate him today to see how he does as he is continually breathing over the vent. No other adjustments from Neurosurgery standpoint. We will continue to follow along. Job ID: [id number]
[2018-11-28] MEDS: Folic Acid 1 MG TAB PO SCH (09:25)
[2018-11-28] MEDS: Famotidine/PF 20 mg/2ml Vial SLOW IVP SCH ×2 (09:25→21:34)
[2018-11-28] MEDS: Insulin Glargine 20 UNITS in Pre-Filled Syringe 1 EACH SC SCH (09:29)
[2018-11-28] MEDS: Cyanocobalamin (Vitamin B-12) 1,000 MCG TAB PO SCH (09:29)
[2018-11-28] MEDS ORDERED: Furosemide 20 MG/2 ML VIAL SLOW IVP SCH (11:15)
--- NOTE | 2018-11-28 11:15 | PRG ---
DATE OF SERVICE: 11/28/2018 SERVICE: Pulmonary Medicine. INTERVAL HISTORY: The patient is doing about the same from a mentation standpoint. He has no specific complaints. There were no events overnight other than intermittent fever. The family has decided to transition over to comfort care only as soon as tomorrow morning. They indicate that he would never want to exist with a permanent debility. He has been very clear about this with multiple family members previously. There is a family discussion that is going to be performed tomorrow morning. At the end of this, I have an expectation that they will be transitioning over to comfort care. They do appreciate that he will continue to breathe on likely for a week if not longer. OBJECTIVE: VITAL SIGNS: Afebrile currently with a T-max of 100.7. Pulse 93, blood pressure 123/69, respirations 28, saturation 96%, currently on 23% FiO2 and PEEP of 5. GENERAL: The patient is intubated. He is on no sedation at this point. HEENT: Normocephalic and atraumatic. Sclerae white. Conjunctivae pink. Oral mucosa is moist without lesions. LUNGS: Decent air entry. There is no prolonged expiratory phase or wheezing present. HEART: Normal rate, regular. ABDOMEN: Soft, nontender, nondistended, bowel sounds are positive. MUSCULOSKELETAL: No cyanosis or clubbing. No pitting in bilateral lower extremities. NEUROLOGIC: Grossly nonfocal. LABORATORY DATA: Sodium 155, chloride 125, bicarb 21. Creatinine. Basic metabolic profile is otherwise unremarkable. ASSESSMENT: 1. Acute hypoxic respiratory failure, resolving. 2. Community-acquired pneumonia secondary to overt aspiration. 3. Intracranial hemorrhage with intraventricular extension. 4. Hypernatremia. DISCUSSION: I will discontinue the half-normal saline. Since he is tolerating tube feeds, we will increase free water flushes. At this point, the patient's family is interested in transitioning over to comfort care, most likely tomorrow morning after a family discussion. They have been very clear with what his wishes would be historically. He would not want to exist with permanent debility and possibly in a bed-bound state. Critical Care will follow along. CRITICAL CARE TIME: 30 minutes. Job ID: [id number] MTDD
--- NOTE | 2018-11-28 14:23 | PDOC.HOSPP ---
- Subjective Subjective: Seen and examined. Neurologically unchanged. Discuss case with patient's mother and sister at bedside, all questions answered in detail. - Objective Vital Signs & Weight: Vital Signs (12 hours) Temp Pulse Resp Pulse Ox 11/28/18 13:25 94 11/28/18 12:00 100.7 F H 11/28/18 10:46 97 11/28/18 10:00 30 H 11/28/18 08:00 100.7 F H 96 11/28/18 07:52 102 H 11/28/18 06:00 27 H 11/28/18 04:00 99.4 F 29 H 11/28/18 03:00 99.6 F 11/28/18 02:27 105 H Weight Admit Weight 179 lb Weight 182 lb 5.156 oz Most Recent Monitor Data Heart Rate from ECG 88 NIBP 132/80 NIBP BP-Mean 97 Respiration from ECG 28 SpO2 95 I&O: 11/27/18 11/28/18 11/29/18 06:59 06:59 06:59 Intake Total 2583.6 3779 807 Output Total 1940 1395 1160 Balance 643.6 2384 -353 Result Diagrams: 11/27/18 06:45 11/28/18 04:17 Additional Labs: Accuchecks 11/28/18 11/27/18 11/27/18 10:43 23:30 18:12 POC Glucose 184 H 242 H 212 H 11/27/18 14:17 POC Glucose 235 H Hospitalist ROS - Review of Systems All other systems reviewed; all pertinent +/- noted in HPI/Subj - Medication Medications: Active Medications Generic Name Dose Route Start Last Admin Trade Name Freq PRN Reason Stop Dose Admin Acetaminophen 650 mg 11/21/18 20:15 11/27/18 14:54 Tylenol Elixir PO 650 mg Q6H PRN Administration Fever > 101 or Headache Bisacodyl 10 mg 11/27/18 17:57 11/27/18 18:14 Dulcolax MT 10 mg DAILYPRN PRN Administration Constipation Cyanocobalamin 1,000 mcg 11/23/18 09:00 11/28/18 09:29 Vitamin B-12 PO 1,000 mcg DAILY DAVID Administration Docusate Sodium 100 mg 11/20/18 13:27 11/27/18 00:01 Colace PO 100 mg BIDPRN PRN Administration Constipation Famotidine 20 mg 11/20/18 21:00 11/28/18 09:25 Pepcid SLOW IVP 20 mg Q12HR DAVID Administration Folic Acid 1 mg 11/23/18 09:00 11/28/18 09:25 Folvite PO 1 mg DAILY DAVID Administration Hydralazine HCl 10 mg 11/22/18 00:21 11/26/18 15:50 Apresoline SLOW IVP 10 mg Q4H PRN Administration TO KEEP SBP Less Than 150 Insulin Glargine 20 units/ 0.2 mls @ 0 mls/hr 11/24/18 09:00 11/28/18 09:29 Miscellaneous Medication SC 0.2 mls QAM DAVID Administration Piperacillin Sod/Tazobactam 100 mls @ 200 mls/hr 11/26/18 12:00 11/28/18 11: 41 Sod 3.375 gm/ Sodium Chloride IVPB 100 mls Q6HR DAVID Administration Insulin Human Lispro 0 units 11/27/18 17:55 11/28/18 11:42 Humalog SC 2 unit .MODERATE SLIDING SC PRN Administration MODERATE SLIDING SCALE Protocol Labetalol HCl 10 mg 11/20/18 13:27 11/25/18 05:30 Normodyne SLOW IVP 10 mg Q4H PRN Administration SBP > 140 or DBP > 90 Labetalol HCl 20 mg 11/25/18 10:00 11/25/18 09:38 Normodyne SLOW IVP 20 mg Q10MIN DAVID Administration - Exam General Appearance: NAD, awake alert Eye: anicteric sclera ENT: normocephalic atraumatic, moist mucosa Neck: supple, symmetric, no lymphadenopathy Heart: RRR, no murmur, no gallops Respiratory: CTAB, no wheezes, no rales, no ronchi Gastrointestinal: soft, non-tender, non-distended, no guarding, no rigidity Extremities: no clubbing, no edema Skin: no lesions, no rashes Neurological: no new deficit Musculoskeletal: no muscle wasting Psychiatric: not oriented Hosp A/P (1) Hemorrhage of brainstem Code(s): I61.3 - NONTRAUMATIC INTRACEREBRAL HEMORRHAGE IN BRAIN STEM Status: Acute Qualifiers: Intracerebral hemorrhage etiology: nontraumatic (2) Respiratory failure requiring intubation Code(s): J96.90 - RESPIRATORY FAILURE, UNSP, UNSP W HYPOXIA OR HYPERCAPNIA Status: Acute (3) Community acquired bacterial pneumonia Code(s): J15.9 - UNSPECIFIED BACTERIAL PNEUMONIA Status: Acute (4) Fever Code(s): R50.9 - FEVER, UNSPECIFIED Status: Acute (5) Tachycardia Code(s): R00.0 - TACHYCARDIA, UNSPECIFIED Status: Acute - Plan Plan: ICU neurosurgery consultation, recommendations appreciated management per childcare center administrator, recommendations appreciated palliative care consultation, recommendations appreciated CT scan of the brain noted CT angiography of the chest negative for pulmonary embolism, bilateral pneumonia Pulm specific ABX on Propofol/ fentanyl for sedation overall prognosis for meaningful recovery is guarded agree with do not resuscitate Family considering withdrawal of care vs Trach/ peg
[2018-11-28] MEDS: Acetaminophen 650 MG/20.3 ML UDCUP PO PRN (16:38)
[2018-11-29] MEDS: HumaLOG 300 UNITS/3 ML VIAL SC PRN ×2 (04:41→13:00)
[2018-11-29] MEDS: Acetaminophen 650 MG/20.3 ML UDCUP PO PRN (04:42)
[2018-11-29] MEDS: Piperacillin/Tazobactam 3.375 GM in Sodium Chloride 0.9% 100 ML IVPB SCH ×2 (05:07→12:49)
[2018-11-29 05:53] LABS: Anion Gap 11 mmol/L (10-20); BUN (Urea Nitrogen) 39 mg/dL (8.4-25.7); Calc. Creatinine Clearance 79 mL/min (70-130); Calcium 8.9 mg/dL (7.8-10.44); Carbon Dioxide 26 mmol/L (22-29); Chloride 123 mmol/L (98-107); Estimated GFR-MDRD 59; Glucose 221 mg/dL (70-105); Potassium 4.6 mmol/L (3.5-5.1); Sodium 155 mmol/L (136-145)
--- NOTE | 2018-11-29 07:14 | PRG ---
DATE OF SERVICE: 11/27/2018 SUBJECTIVE: Mr. Morin this morning has what appears to be stable neurologic examination per Dr. Kenny's notes from the last few days. He does follow some commands on the right upper and lower extremity, although it is inconsistent and infrequent. He does definitively withdrawal and moves in what appears to be an attempt to localize to painful stimuli. Right pupil is dilated and unreactive. Left pupil is constricted, however, does react minimally after testing this on several occasions. Blood pressures have remained consistent with parameter to hold his systolic pressures below 140. I discussed with nurse at bedside that we can relax this to 160. Additional concern is that blood sugars have remained in the 240s to 260s in the last few days. This needs to be better controlled. Push for increasing his sliding scale, so that we can treat this more aggressively. Otherwise, we will continue to follow. Job ID: [id number]
--- NOTE | 2018-11-29 08:07 | PRG ---
DATE OF SERVICE: 11/29/2018 I saw Mr. Morin in his ICU room this morning. He is still on the ventilator. Dr. Iverson did not report any significant events over the weekend. He has stable vital signs. When I asked him to squeeze my hand, he does so. He wiggles his right toes to command. He cannot open his eyes. When I open it for him, there is a large nonreactive right pupil and a small pontine left pupil. His neurological examination is unchanged. The family will make a decision sometime early this week as to the trach and PEG. The other alternative is comfort measures. We will continue to follow. Job ID: [id number]
[2018-11-29] MEDS ORDERED: Furosemide 20 MG/2 ML VIAL SLOW IVP SCH (09:00)
[2018-11-29] MEDS: Famotidine/PF 20 mg/2ml Vial SLOW IVP SCH (09:26)
[2018-11-29] MEDS: Folic Acid 1 MG TAB PO SCH (09:26)
[2018-11-29] MEDS: Cyanocobalamin (Vitamin B-12) 1,000 MCG TAB PO SCH (09:30)
[2018-11-29] MEDS: Insulin Glargine 20 UNITS in Pre-Filled Syringe 1 EACH SC SCH (09:31)
--- NOTE | 2018-11-29 13:18 | PDOC.HOSPP ---
- Subjective Subjective: Seen and examined. No clinical change. Had a long discussion with family in family meeting with palliative care and they are deciding about comfort care measures versus tracheostomy. At this time they are leaning towards comfort care and withdrawal of care. All questions answered in detail. Poor prognosis despite maximum medical/ surgical therapy. - Objective Vital Signs & Weight: Vital Signs (12 hours) Temp Pulse Resp BP Pulse Ox 11/29/18 12:00 98.5 F 11/29/18 10:57 79 159/89 H 11/29/18 10:00 25 H 11/29/18 08:00 99.5 F 22 H 95 11/29/18 06:45 83 152/87 H 11/29/18 06:00 100.2 F H 27 H 11/29/18 04:00 102.9 F H 29 H 11/29/18 02:26 92 11/29/18 02:00 27 H Weight Admit Weight 179 lb Weight 181 lb 10.574 oz Most Recent Monitor Data Heart Rate from ECG 87 NIBP 158/83 NIBP BP-Mean 108 Respiration from ECG 26 SpO2 94 I&O: 11/28/18 11/29/18 11/30/18 06:59 06:59 06:59 Intake Total 3779 4277 400 Output Total 1395 2825 1385 Balance 2384 1452 -985 Result Diagrams: 11/27/18 06:45 11/29/18 04:53 Additional Labs: Accuchecks 11/29/18 11/29/18 11/28/18 13:02 04:29 21:29 POC Glucose 277 H 189 H 198 H 11/28/18 17:39 POC Glucose 230 H Hospitalist ROS - Review of Systems ROS unobtainable: due to mental status - Medication Medications: Active Medications Generic Name Dose Route Start Last Admin Trade Name Freq PRN Reason Stop Dose Admin Acetaminophen 650 mg 11/21/18 20:15 11/29/18 04:42 Tylenol Elixir PO 650 mg Q6H PRN Administration Fever > 101 or Headache Bisacodyl 10 mg 11/27/18 17:57 11/27/18 18:14 Dulcolax SD 10 mg DAILYPRN PRN Administration Constipation Cyanocobalamin 1,000 mcg 11/23/18 09:00 11/29/18 09:30 Vitamin B-12 PO 1,000 mcg DAILY DAVID Administration Docusate Sodium 100 mg 11/20/18 13:27 11/27/18 00:01 Colace PO 100 mg BIDPRN PRN Administration Constipation Famotidine 20 mg 11/20/18 21:00 11/29/18 09:26 Pepcid SLOW IVP 20 mg Q12HR DAVID Administration Folic Acid 1 mg 11/23/18 09:00 11/29/18 09:26 Folvite PO 1 mg DAILY DAVID Administration Hydralazine HCl 10 mg 11/22/18 00:21 11/26/18 15:50 Apresoline SLOW IVP 10 mg Q4H PRN Administration TO KEEP SBP Less Than 150 Insulin Glargine 20 units/ 0.2 mls @ 0 mls/hr 11/24/18 09:00 11/29/18 09:31 Miscellaneous Medication SC 0.2 mls QAM DAVID Administration Piperacillin Sod/Tazobactam 100 mls @ 200 mls/hr 11/26/18 12:00 11/29/18 12: 49 Sod 3.375 gm/ Sodium Chloride IVPB 100 mls Q6HR DAVID Administration Insulin Human Lispro 0 units 11/27/18 17:55 11/29/18 04:41 Humalog SC 2 unit .MODERATE SLIDING SC PRN Administration MODERATE SLIDING SCALE Protocol Labetalol HCl 10 mg 11/20/18 13:27 11/25/18 05:30 Normodyne SLOW IVP 10 mg Q4H PRN Administration SBP > 140 or DBP > 90 Labetalol HCl 20 mg 11/25/18 10:00 11/25/18 09:38 Normodyne SLOW IVP 20 mg Q10MIN DAVID Administration - Exam General Appearance: NAD, awake alert Eye: PERRL ENT: normocephalic atraumatic, moist mucosa Neck: supple, symmetric, no lymphadenopathy Heart: RRR, no murmur, no gallops Respiratory: CTAB, no wheezes, no rales, no ronchi Gastrointestinal: soft, non-tender, non-distended, no guarding, no rigidity Extremities: no edema Skin: no lesions, no rashes Neurological: no new deficit, hemiplegia Musculoskeletal: no muscle wasting Psychiatric: not oriented Hosp A/P (1) Hemorrhage of brainstem Code(s): I61.3 - NONTRAUMATIC INTRACEREBRAL HEMORRHAGE IN BRAIN STEM Status: Acute Qualifiers: Intracerebral hemorrhage etiology: nontraumatic (2) Respiratory failure requiring intubation Code(s): J96.90 - RESPIRATORY FAILURE, UNSP, UNSP W HYPOXIA OR HYPERCAPNIA Status: Acute (3) Community acquired bacterial pneumonia Code(s): J15.9 - UNSPECIFIED BACTERIAL PNEUMONIA Status: Acute (4) Fever Code(s): R50.9 - FEVER, UNSPECIFIED Status: Acute (5) Tachycardia Code(s): R00.0 - TACHYCARDIA, UNSPECIFIED Status: Acute - Plan Plan: ICU neurosurgery consultation, recommendations appreciated management per delivery and mail sorter, recommendations appreciated palliative care consultation, recommendations appreciated CT scan of the brain noted CT angiography of the chest negative for pulmonary embolism, bilateral pneumonia Pulm specific ABX on Propofol/ fentanyl for sedation overall prognosis for meaningful recovery is guarded agree with do not resuscitate Family considering withdrawal of care vs Trach/ peg Attended family meeting on 11/29/18 - all questions answered in detail
[2018-11-29 14:05] VITALS: BMI 28.4
[2018-11-29] MEDS ORDERED: Lorazepam 2 MG/ML VIAL SLOW IVP PRN (14:39)
[2018-11-29] MEDS ORDERED: Scopolamine 1.5 mg/72 hour Patch TD SCH (14:45)
[2018-11-29] MEDS ORDERED: Morphine 4 MG/ML VIAL SLOW IVP SCH (14:45)
--- NOTE | 2018-11-29 14:49 | PDOC.PALFU ---
Palliative Care Follow-up Note Family desiring compassionate extubation secondary to current health status with dependency on mechanical ventilation and poor outcomes paired with quality of life not inline with what the family believes the patient would want. All medications discontinued, orders place for comfort measures and medications. Father Primitivo here to support family. Dr Whelan, Dr Loo, and Dr TurnerEfraín notified. Respiratory therapy present.
[2018-11-29] MEDS ORDERED: Lorazepam 2 MG/ML VIAL ONE (14:54)
--- NOTE | 2018-11-29 15:40 | PRG ---
DATE OF SERVICE: 11/29/2018 The family has apparently made a decision, they are going to proceed forward with comfort care. It is okay with me if the patient is extubated when the family is ready. We will follow from a distance. Job ID: [id number]
[2018-11-29] MEDS: Morphine 10 MG/ML VIAL SLOW IVP PRN ×2 (18:05→20:18)
[2018-11-29] MEDS: Lorazepam 2 MG/ML VIAL SLOW IVP PRN ×2 (19:24→23:26)
[2018-11-30] MEDS: Morphine 10 MG/ML VIAL SLOW IVP PRN ×3 (01:35→08:18)
[2018-11-30] MEDS: Lorazepam 2 MG/ML VIAL SLOW IVP PRN ×2 (03:30→08:18)
[2018-11-30] MEDS ORDERED: Midazolam HCl 2 mg/2 ml Vial SLOW IVP PRN ×2 (07:54→08:12)
[2018-11-30 08:30] VITALS: BP 61/34; TEMP 104.9
--- NOTE | 2018-11-30 08:41 | PDOC.PALPN ---
Palliative Progress Note - Subjective Agonal breathing, nonresponsive, febrile. Family at bedside. ROS: Patient unable to contribute secondary to nonresponsive state. - Objective Vital Signs: Vital Signs - Most Recent Temp Pulse Resp BP Pulse Ox 104.9 F H 131 H 10 L 61/34 L 74 L 11/30/18 08:00 11/30/18 08:00 11/30/18 08:00 11/30/18 08:00 11/30/18 08:00 - Physical Exam Constitutional: NAD Deviation from normal: agonal breathing, however appears comfortable HEENT: moist MMs Deviation from normal: Labored respirations with accessory muscle use Musculoskeletal: edema present Deviation from normal: no purposeful movement Deviation from normal: sedated, non responsive. - Assessment (1) Palliative care encounter Code(s): Z51.5 - ENCOUNTER FOR PALLIATIVE CARE Current Visit: Yes Status: Acute (2) Hemorrhage of brainstem Code(s): I61.3 - NONTRAUMATIC INTRACEREBRAL HEMORRHAGE IN BRAIN STEM Current Visit: Yes Status: Acute Qualifiers: Intracerebral hemorrhage etiology: nontraumatic (3) Respiratory failure requiring intubation Code(s): J96.90 - RESPIRATORY FAILURE, UNSP, UNSP W HYPOXIA OR HYPERCAPNIA Current Visit: Yes Status: Acute - Plan Plan: Discussed with family end of life, during encounter patient respirations ceased , no heart rate auscultated. Gaurang Sandoval RN notified. Patient mother and sister at bedside and grieving appropriately. Father Primitivo notified as well as Dr Loo who was notified by Gaurang Sandoval RN [40] minutes spent on this encounter with >50% of the time in counseling and coordination of care.
--- NOTE | 2018-12-01 03:03 | DIS ---
DATE OF ADMISSION: 11/20/2018 DATE OF DISCHARGE: 11/30/2018 REASON FOR HOSPITALIZATION: Weakness. SIGNIFICANT FINDINGS: The patient was found to have severe acute cerebrovascular accident including intracranial hemorrhage of the brainstem. PROCEDURES PERFORMED AND TREATMENTS RENDERED: The patient had maximum medical therapy per all specialists including Neurosurgery, Pulmonology/Critical Care, and Palliative Care-please see full consultation notes and progress notes for details. Unfortunately, despite maximum medical efforts, the patient did not clinically improve, and he continued to clinically decline and family elected for less aggressive measures including withdrawal of care from the ventilator and he from natural causes. CONDITION ON DISCHARGE: Stable. SPECIFIC INSTRUCTIONS FOR THE PATIENT/FAMILY: The patient recommended transfer to the patient's family's preferred mortuary for further plan of care including cremation versus burial. DISCHARGE MEDICATIONS: Not applicable. HOSPITAL COURSE: Mr. Morin was an unfortunate 53-year-old gentleman who presented to [facility] on 11/20/2018, with weakness and he was found to have altered mental status. The patient unfortunately suffered from acute brain stem hemorrhage, likely a hypertensive bleed and he was transferred to the intensive care unit. The patient had maximum medical therapy from Intensive Care Unit/critical care physician, neurosurgery, and Palliative Care-please see full consultation notes and progress notes for details. The patient was intubated for airway protection for altered mental status and he had all appropriate imaging. Neurosurgery did offer surgical correction including external ventricular drain which the family declined. The patient's family stated several times including his mother, his sister, and his children that he had stated that he would not want to live like this and he would not want to live artificially on ventilators and machines. The patient had continued maximum medical therapy while the family was deciding the next plan of care. Over the next 9 days, the patient had no significant improvement in his neurologic status. The patient would occasionally follow on 1/2 of his body, however, the other half was paralyzed. The patient did not follow commands consistently and would occasionally answer questions incorrectly when squeezing his hand. An example of this is the patient's sister was holding the patient's hand and said "squeeze my hand if your son's name is [place]." The patient did squeeze his sister's hand, however, this patient's son's name is not Anuj. Family in agreement that the patient was not having purposeful movements and he was unlikely to have any quality of care. Long discussions were had with myself, Neurosurgery, critical care physician, and the Palliative/Critical Care team considering the further plan of care and whether trach and PEG or continued vent weaning or withdrawal of care to be considered. Ultimately, the patient's family decided in unison including his mother, his sister, and his two adult children that the patient would not want to be kept alive artificially on machine and they have elected to withdraw care from him. The patient was extubated on 11/29/2018, and he was transferred from the intensive care unit with comfort care only. The patient had a combination of IV medications to keep him comfortable and ultimately he did from natural causes on 11/30/2018. Greater than 50 minutes spent coordinating care and discharge process for this patient. Job ID: [id number]
== END 2018-11-30 12:49 | disposition expired | DRG 64 ==
LOC: ERS 11:45 → CCU 13:19 → ONC 11-29 20:03
PROVIDERS: ADMIT Neurological Surgery; ATTEND Neurological Surgery
PROC: 0BH17EZ Insertion of Endotracheal Airway into Trachea, Via Natural or Artificial Opening (ICD-10-PCS; principal; 2018-11-20)
PROC: 5A1955Z Respiratory Ventilation, Greater than 96 Consecutive Hours (ICD-10-PCS; 2018-11-20)
DX: I61.3 Nontraumatic intracerebral hemorrhage in brain stem (principal); J96.01 Acute respiratory failure with hypoxia; J69.0 Pneumonitis due to inhalation of food and vomit; I16.1 Hypertensive emergency; E87.0 Hyperosmolality and hypernatremia; G81.94 Hemiplegia, unspecified affecting left nondominant side; R40.2312 Coma scale, best motor response, none, at arrival to emergency department; R40.2112 Coma scale, eyes open, never, at arrival to emergency department; R40.2212 Coma scale, best verbal response, none, at arrival to emergency department; R40.2221 Coma scale, best verbal response, incomprehensible words, in the field [EMT or ambulance]; I61.8 Other nontraumatic intracerebral hemorrhage; I62.9 Nontraumatic intracranial hemorrhage, unspecified; Z51.5 Encounter for palliative care; E87.6 Hypokalemia; Z66 Do not resuscitate; E87.8 Other disorders of electrolyte and fluid balance, not elsewhere classified; R29.728 NIHSS score 28; R40.2361 Coma scale, best motor response, obeys commands, in the field [EMT or ambulance]; R40.2141 Coma scale, eyes open, spontaneous, in the field [EMT or ambulance]
CPT/HCPCS: 31500; 36415; 36416; 51702; 70450; 70496; 70498; 71045; 71275; 72125; 80048; 80053; 80306; 80307; 81003; 81015; 82805; 83036; 83605; 83690; 83735; 84100; 85025; 85049; 85300; 85362; 85379; 85384; 85610; 85730; 86850; 86900; 86901; 93005; 93010; 94002; 94003; 94760; 96365; 96366; 96367; 96368; 96375; 96376; 99292; J0360; J1815; J1940; J2060; J2270; J2543; J2704; J3010; J3475; J3480; J3490; J7050; Q9966; S0028